=== PATIENT | male | born 1940 | race Caucasian/White ===

== ENCOUNTER 2017-05-29 13:00 | Inpatient (IN) ==
[2017-05-29 14:42] LABS: Basophils # (Auto) 0.1 K/mcL (0.0-0.3); Basophils % (Auto) 1.1 % (0.0-2.0); Eosinophils # (Auto) 0.5 K/mcL (0.0-0.7); Eosinophils % (Auto) 5.6 % (0.0-7.0); Granulocytes % (Auto) 54.4 % (38.0-78.0); Lymphocytes # (Auto) 2.7 K/mcL (1.5-4.8); Lymphocytes % (Auto) 28.1 % (15.5-49.0); Mean Cell Volume 107.4 fL (80.0-100.0); Mean Corpuscular HGB Conc 33.9 g/dL (31.0-36.0); Mean Corpuscular Hemoglobin 36.4 pg (26.0-34.0); Monocytes % (Auto) 10.8 % (1.0-12.0); Platelet Count 296 K/mcL (140-440); RBC 3.65 M/mcL (4.50-5.90); Red Cell Distribution Width 14.7 % (11.5-14.5)
[2017-05-29 14:45] LABS: Appearance,Urine HAZY; Bilirubin,Urine NEG (NEG); Color,Urine YELLOW; Glucose,Urine (UA) NEGATIVE (NEG); Leukocyte Esterase,Urine NEG /uL (NEG); Nitrate,Urine NEG (NEG); Protein,Urine NEG (NEG); Specific Gravity,Urine 1.013 (1.000-1.035); Urine Blood NEG mg/dL (<0.03); Urobilinogen,Urine NEG (NEG)
[2017-05-29 14:54] LABS: Blood Urea Nitrogen 19 mg/dl (8-23)
[2017-06-04] MEDS ORDERED: oxyCODONE 10 MG TAB.ER.12H PO SCH (06:00)
[2017-06-04] MEDS ORDERED: CELECOXIB 200 MG CAPSULE PO SCH (06:00)
[2017-06-04] MEDS ORDERED: VANCOMYCIN 1,500 MG in 0.9 % SODIUM CHLORIDE 500 ML IV SCH (06:00)
[2017-06-04] MEDS ORDERED: PREGABALIN 75 MG CAPSULE PO SCH (06:00)
[2017-06-04] MEDS ORDERED: KETOROLAC 30 MG, ROPIVACAINE HCL/PF 49.5 ML, EPINEPHrine 0.5 MG, 0.9 % SODIUM CHLORIDE ... IJ ONE (07:00)
[2017-06-04] MEDS ORDERED: BUPIVACAINE PF 0.5% 30 ML VIAL IJ ONE (12:25)
[2017-06-04] MEDS ORDERED: PHENYLEPHRINE 10 MG/ML VIAL IV ONE (12:25)
[2017-06-04] MEDS ORDERED: LIDOCAINE HCL/PF 100 MG/5 ML SYRINGE IV ONE (12:25)
[2017-06-04] MEDS ORDERED: DEXAMETHASONE 10 MG/ML VIAL IV ONE (12:25)
[2017-06-04] MEDS ORDERED: ePHEDrine 50 MG/ML AMPUL IV ONE (12:25)
[2017-06-04] MEDS ORDERED: PROPOFOL 200 MG/20 ML VIAL IV ONE (12:25)
[2017-06-04] MEDS ORDERED: ONDANSETRON 4 MG/2 ML VIAL IV ONE (12:25)
[2017-06-04] MEDS ORDERED: TRANEXAMIC ACID 1,000 MG/10 ML VIAL IV ONE ×2 (12:25→14:19)
[2017-06-04] MEDS ORDERED: MIDAZOLAM 2 MG/2 ML VIAL IV ONE (12:25)
[2017-06-04] MEDS ORDERED: MAGNESIUM HYDROXIDE 30 ML ORAL.SUSP PO PRN (14:19)
[2017-06-04] MEDS ORDERED: FLEETS ADULT ENEMA PR PRN (14:19)
[2017-06-04] MEDS ORDERED: BISACODYL 10 MG SUPP.RECT PR PRN (14:19)
[2017-06-04] MEDS ORDERED: POLYETHYLENE GLYCOL 3350 17 GM PACKET PO PRN (14:19)
[2017-06-04] MEDS ORDERED: ONDANSETRON 4 MG/2 ML VIAL IV PRN ×2 (14:19→14:23)
[2017-06-04] MEDS ORDERED: BENZOCAINE/MENTHOL 1 LOZENGE PO PRN ×2 (14:19→14:23)
--- NOTE | 2017-06-04 14:19 | Brief Operative Note ---
Date of procedure: 06/04/17 Pre-op diagnosis: Right knee severe DJD Post-op diagnosis: same Procedure: Right robotic assisted total knee arthroplasty Grafts/Implants: Yes ([place] [employer] CR 5, 6 tibia, 11 mm, 36 mm patella) Anesthesia: spinal, GLMA Findings: severe bone on bone arthritis Complications: none Surgeon: Jesse Horn Nursing Informatics Specialist: Meng Cook Estimated blood loss (cc): 30 Specimens Removed/Pathology: none sent Condition: stable Disposition: PACU
[2017-06-04] MEDS ORDERED: fentaNYL 100 MCG/2 ML VIAL IV PRN (14:23)
[2017-06-04] MEDS ORDERED: METOPROLOL TARTRATE 5 MG/5 ML VIAL IV PRN (14:23)
[2017-06-04] MEDS ORDERED: METHOCARBAMOL 1,000 MG/10 ML VIAL IV PRN (14:23)
[2017-06-04] MEDS ORDERED: MEPERIDINE 25 MG/ML SYRINGE IV PRN (14:23)
[2017-06-04] MEDS ORDERED: IPRATROPIUM/ALBUTEROL 3 ML AMPUL.NEB NEB PRN (14:23)
[2017-06-04] MEDS ORDERED: traMADol 50 MG TABLET PO PRN (14:24)
[2017-06-04] MEDS ORDERED: LACTATED RINGERS 1,000 ML IV SCH (14:30)
[2017-06-04] MEDS ORDERED: ceFAZolin 1 GM VIAL IV SCH (14:30)
--- NOTE | 2017-06-04 14:50 | Discharge Summary ---
Providers - Providers Patient information: Note initiated : 06/04/17 at 2:48 pm Service Date, if different from initiated Date: [] Patient: Jose A Zamudio 77 y/o M admitted on 06/04/17 for Arthroplasty, Knee, Total - Right Robotic. Chief Complaint: [] Discharge date: 06/05/17 Hospitalization Hospital course: Pt was admitted for a TKA and underwent the procedure on the day of admission. He was transferred to the floor for IV pain meds, IV abx, and PT. He spent one night on the floor prior to discharge. He was discharged with appropriate pain meds, and aspirin for DVT prophylaxis. he will f/u at [facility] in 10-14 days. Discharge diagnosis: R knee osteoarthrosis Exam - Exam Clean and dry: Yes Weight bearing status: as tolerated Ortho Discharge - TKA - Patient Instructions Diet: Regular Diet Activity: activity as tolerated Total Knee Protocol: For Total Knee: Start ROM ORQUIDEA with stationary bike or rocking chair. Work on gaining full extension of knee. Posterior dislocation precautions provided. Hip abductor strengthening and gait training instructions provided. Apply Cryocuff as instructed. Dressing Care: May shower in 2 days - Follow Up Plan Disposition: Home, Self-Care Prognosis: Good Rehab Potential: Good Overall status at discharge: patient is progressing back to baseline - Orders For Discharge Prescriptions: Aspirin [Ecotrin] 325 mg PO BID #30 tab.ec HYDROcodone/APAP 10/325MG [[place] 10/325Mg] 1 - 2 tab PO Q4HP PRN #100 tab PRN Reason: Pain Pending Studies Resuscitation Status Full Code Diet Regular Diet Start FriJun 04 Dinner Diet NPO Diet (NOW) Start FriJun 04 Breakfast Celecoxib (Celebrex) 200 mg PO PREOP ANDREW Stop: 06/04/17 17:00 Last Admin: 06/04/17 10:00 Dose: 200 mg Oxycodone HCl (Oxycontin) 10 mg PO PREOP ANDREW Stop: 06/04/17 17:00 Last Admin: 06/04/17 10:01 Dose: Pregabalin (Lyrica) 75 mg PO PREOP ANDREW Stop: 06/04/17 17:00 Last Admin: 06/04/17 10:00 Dose: 75 mg
[2017-06-04] MEDS: 0.9 % SODIUM CHLORIDE 1,000 ML IV SCH (15:07)
--- NOTE | 2017-06-04 15:30 | XRay Report ---
CLINICAL INFORMATION: Postop total knee prostheses COMPARISON: None. FINDINGS: Total knee prostheses is anatomically aligned. The small amount of periosteal bone along the lateral epiphysis and metaphysis of the proximal tibia. No other osseous abnormalities. Soft tissues swelling and gas seen as expected. IMPRESSION: Total knee prostheses is anatomically aligned. Periosteal new bone about the lateral cortex of the proximal tibial metaphysis and epiphysis. This is nonspecific and could indicate trauma or, less likely, inflammation Interpreted and Authenticated by: Zachary Izaguirre 06/04/17
[2017-06-04] MEDS: KETOROLAC 15 MG/ML VIAL IV SCH ×2 (17:48→23:38)
[2017-06-04] MEDS: HYDROcodone/APAP 10/325MG TABLET PO PRN ×2 (19:33→23:38)
[2017-06-04] MEDS: SENNOSIDES 1 TABLET PO SCH (19:34)
[2017-06-04] MEDS: DOCUSATE SODIUM 100 MG CAPSULE PO SCH (19:34)
[2017-06-04] MEDS: ASPIRIN 325 MG ENTERIC COATED TABLET PO SCH (19:34)
[2017-06-04] MEDS: 0.9 % SODIUM CHLORIDE 10 ML SYRINGE IV SCH (21:28)
[2017-06-04] MEDS: VANCOMYCIN 1,000 MG in 0.9 % SODIUM CHLORIDE 250 ML IV SCH (22:38)
[2017-06-05] MEDS: 0.9 % SODIUM CHLORIDE 1,000 ML IV SCH (01:29)
[2017-06-05] MEDS: HYDROcodone/APAP 10/325MG TABLET PO PRN ×5 (04:34→22:09)
[2017-06-05] MEDS: KETOROLAC 15 MG/ML VIAL IV SCH ×4 (05:45→23:30)
[2017-06-05] MEDS: 0.9 % SODIUM CHLORIDE 10 ML SYRINGE IV SCH ×3 (05:49→22:10)
--- NOTE | 2017-06-05 07:43 | Orthopedic Progress Note ---
Orthopedics - Auxillary Note - Subjective Patient Information: Note initiated : 06/05/17 at 7:41 am Service Date, if different from initiated Date: [] Patient: Jose A Zamudio 77 y/o M admitted on 06/04/17 for Arthroplasty, Knee, Total - Right Robotic. Chief Complaint: mild to moderate pain, mainly with activity. bandages c/d/i nvi-distal Laboratory Results - last 24 hr 06/05/17 05:57 Hgb 10.6 L Hct 30.9 L s/p R total knee arthroplasty-stable mobilize with PT tentative discharge 06/06/17 Vital Signs Temp Pulse Pulse Resp BP BP Pulse Ox 06/05/17 07:35 65 94 06/05/17 07:22 16 93 06/05/17 07:18 96.8 F L 61 16 111/67 93 06/05/17 04:00 97.5 F 57 L 16 124/70 94 06/05/17 00:00 97.7 F 66 16 125/67 91 06/04/17 20:00 97.9 F 68 18 138/72 93 06/04/17 17:28 178/77 99 06/04/17 17:15 151/78 97 06/04/17 16:15 149/77 98 06/04/17 16:00 154/75 98 06/04/17 15:45 18 145/71 98 06/04/17 15:30 96.4 F L 14 138/76 100 06/04/17 15:18 97.2 F 63 14 127/62 98 06/04/17 15:05 97.6 F 67 15 126/58 100 06/04/17 14:55 69 18 119/52 100 06/04/17 14:50 67 18 127/56 100 06/04/17 14:45 68 16 113/51 100 06/04/17 14:40 65 14 119/51 99 06/04/17 14:38 98.1 F 65 18 118/52 99 06/04/17 10:20 97.2 F 18 181/76 91 Intake and Output 06/04/17 06/05/17 06/05/17 21:59 05:59 13:59 Intake Total 2039 1450 / 1450 Output Total 85 / 85 625 / 625 200 / 200 Balance 1954 / 1955 825 / 825 -200 / -200 Intake: IV 1800 / 1800 Oral 240 / 240 1450 / 1450 Output: Void Amount 625 / 625 200 / 200 Estimated Blood Loss 85 / 85 Other: Meal Dinner Percent of Meal Consumed 100% Feeding Ability Independent Weight 212 lb
[2017-06-05] MEDS: ATENOLOL 50 MG TABLET PO SCH (08:20)
[2017-06-05] MEDS: ASPIRIN 325 MG ENTERIC COATED TABLET PO SCH ×2 (08:20→20:34)
[2017-06-05] MEDS: MULTIVIT,THER IRON,CA,FA & MIN 1 TABLET PO SCH (08:20)
[2017-06-05] MEDS: DOCUSATE SODIUM 100 MG CAPSULE PO SCH ×2 (08:20→20:34)
[2017-06-05] MEDS: [UNRECOGNIZED DRUG - OTHER] PO SCH (08:24)
[2017-06-05] MEDS ORDERED: VANCOMYCIN 1,500 MG in 0.9 % SODIUM CHLORIDE 500 ML IV ONE (11:00)
[2017-06-05] MEDS: VANCOMYCIN 1,000 MG in 0.9 % SODIUM CHLORIDE 250 ML IV SCH (11:35)
--- NOTE | 2017-06-05 13:36 | Operative Note ---
DATE OF OPERATION: 06/04/2017 PREOPERATIVE DIAGNOSIS: Right knee severe osteoarthritis. POSTOPERATIVE DIAGNOSIS: Right knee severe osteoarthritis. PROCEDURE PERFORMED: Right robotic-assisted total knee arthroplasty using a size 5 cruciate retaining femoral component, size 6 tibial baseplate, 11 mm X3 tibial insert with a 36 mm patellar button. SURGEON: Jesse Horn MD. NURSING EDUCATION CONSULTANT: Joel Cook PA-C. ANESTHESIA: Spinal plus general. DRAINS: None. SPECIMENS: Bone cuts, which were discarded. BLOOD LOSS: 30 mL COMPLICATIONS: None. POSTOPERATIVE CONDITION: Stable. INDICATIONS FOR SURGERY: This is a 77-year-old male who has had progressive worsening right knee pain. Radiographs showed advanced arthrosis. FINDINGS AT SURGERY: There is advanced tricompartmental osteoarthritis. Post implantation showed good alignment, stability, and patellar tracking. PROCEDURE IN DETAIL: The patient had been seen in preoperative holding. Informed consent had been obtained after discussion of risks and benefits of surgery. Risks including, but not limited to, bleeding, possibly requiring transfusion; infection, possibly requiring implant removal and prolonged IV antibiotics; injury to nerves, blood vessels, and other surrounding structures; anesthetic risks, incomplete or no resolution of symptoms; stiffness; swelling; pain; clunking; DVT and pulmonary embolus risks; and the possibility of needing further surgery. He understood these risks and wished to proceed. Correct operative site was marked and the patient received spinal anesthesia. He was then taken to the operating room and LMA general given. Right lower extremity was carefully prepped and draped in normal sterile fashion and a time-out was performed verifying patient name, operative site, and plan. Esmarch was used to exsanguinate the extremity and tourniquet was inflated. IrriSept was irrigated. A medial parapatellar arthrotomy was made and subperiosteal exposure done of the anterior medial tibia. This was completed with release of the deep fibers of the MCL and taken around the corner of the proximal tibia. We then resected retropatellar fat pad and did a subperiosteal exposure of the anterior distal cortex of the femur. We then made two stab incisions over the tibia and two over the femur and placed two bicortical pins into each. We then attached the arrays. We also placed the femoral and tibial check points. Hip center of rotation was then checked and then the medial and lateral malleoli were checked with the green probe. We did our double checks of the femoral and tibial checkpoints. The blue probe was then used to do our mapping. Once this was completed, we then removed osteophytes with a rongeur. We then checked our flexion and extension gaps. We were tight medial and looser lateral, so we placed our tibia in 2 degrees of varus. Her femur was placed in 1 degree of varus. We did get 17 on our medial flexion and extension gaps as well as 17 our lateral flexion gap. Once we liked our component position, this was locked into the computer and after doing our double checks using the robotic arm assistance we made our saw cuts on the femur followed by the tibia. We then used the green probe to identify our tibial component rotation and marked that with Bovie. We then prepared the tibia with the boss reamer and keel punch and then a keeled tibial trial was placed. The femur was elevated and posterior osteophytes removed with a curved osteotome and curet. We placed the femoral trial and drilled our peg holes. A 9 insert trial was placed. The knee was taken into extension. The patella was measured and then freehand resected removing 10 mm of bone. We medialized this and sized to a 36. Holes were drilled and the patellar trial was placed. A lateral facetectomy was performed with a saw blade. We liked our patellar tracking, so we went ahead and opened implants except for the tibial insert. The trial implants were removed. Antibiotic cement was mixed while we irrigated the joint with IrriSept. After a minute we pulse lavaged with saline and then CO2 gun was used to clear the cancellous bone surfaces. We cemented the tibia followed by the femur. Excess cement had been removed and then a 9 insert trial was placed and the knee was taken into extension. The patella was cemented. We then injected our pain cocktail into the pericapsular and subcutaneous tissues. The joint was filled with IrriSept. After waiting several minutes we then pulse lavaged copiously with saline. Once cement had fully hardened, we flexed the knee up and did a final inspection and removal of any excess cement. We removed the 9 trial. This reduced pretty easily and we checked our extension and there were a few degrees of hyperextension, so we went up to a size 11 trial. This had about 3 degrees short of full extension, so we went ahead and removed the 11 and opened an 11 insert. We injected the remainder of pain cocktail into the posterior capsule and then irrigated with IrriSept and then impacted the insert. After a minute we pulse lavaged with saline. Then #2 FiberWire [id number] interrupted were used around the superior quadrant of the patella, #1 Vicryl [id number] were used around the inferior quadrant of the patella and running #1 Vicryl was used for patellar tendon and quad tendon. Prior to this closure we did remove both femoral and tibial check points. Final IrriSept irrigation was done, after a minute we pulse lavaged and then 2-0 Monocryl was used for subcutaneous and jeffrey for skin. Our pins had been removed and we used jeffrey for the stab incisions. Xeroform and sterile dressing were applied. Tourniquet was released. The patient was awakened, extubated, and transferred to recovery in stable condition. BJB:natividad Job ID: [id number] Doc ID: [id number] Jesse Horn MD
[2017-06-05] MEDS: SENNOSIDES 1 TABLET PO SCH (20:34)
[2017-06-06] MEDS: HYDROcodone/APAP 10/325MG TABLET PO PRN ×2 (02:02→05:52)
[2017-06-06] MEDS: KETOROLAC 15 MG/ML VIAL IV SCH (05:53)
[2017-06-06] MEDS: 0.9 % SODIUM CHLORIDE 10 ML SYRINGE IV SCH (05:56)
--- NOTE | 2017-06-06 07:37 | Orthopedic Progress Note ---
Orthopedics - Auxillary Note - Subjective Patient Information: Note initiated : 06/06/17 at 7:36 am Service Date, if different from initiated Date: [] Patient: Jose A Zamudio 77 y/o M admitted on 06/04/17 for Arthroplasty, Knee, Total - Right Robotic. Chief Complaint: no c/o. ready for discharge. bandages mild dry bloody drainage. nvi-distal Vital Signs Temp Pulse Resp BP Pulse Ox 06/06/17 04:00 97.8 F 58 L 16 156/74 92 06/05/17 23:43 97.8 F 64 16 143/71 92 06/05/17 20:00 98.1 F 64 16 138/73 93 06/05/17 16:30 97.9 F 64 16 118/65 94 06/05/17 11:50 96.8 F L 61 16 111/63 94 Intake and Output 06/05/17 06/06/17 06/06/17 21:59 05:59 13:59 Intake Total 400 / 400 300 / 300 Output Total 600 / 600 700 / 700 Balance -200 / -200 -400 / -400 Intake: Oral 400 / 400 300 / 300 Output: Void Amount 600 / 600 700 / 700 Other: Meal Dinner Percent of Meal Consumed 100% Feeding Ability Independent # Voids 2 Weight 214 lb Laboratory Results - last 24 hr 06/06/17 05:37 Hgb 10.6 L Hct 31.0 L s/p R TKA-stable mobilize with PT discharge home today
[2017-06-06] MEDS: ATENOLOL 50 MG TABLET PO SCH (08:34)
[2017-06-06] MEDS: ASPIRIN 325 MG ENTERIC COATED TABLET PO SCH (08:34)
[2017-06-06] MEDS: MULTIVIT,THER IRON,CA,FA & MIN 1 TABLET PO SCH (08:34)
[2017-06-06] MEDS: DOCUSATE SODIUM 100 MG CAPSULE PO SCH (08:34)
[2017-06-06] MEDS: [UNRECOGNIZED DRUG - OTHER] PO SCH (09:05)
== END 2017-06-06 09:30 | disposition home or self-care (01) | DRG 470 ==
LOC: MEDSUR 06-04 08:42
PROVIDERS: ADMIT Orthopaedic Surgery; ATTEND Orthopaedic Surgery

== ENCOUNTER 2017-06-08 09:58 | Inpatient (IN) ==
[2017-06-08] MEDS ORDERED: PANTOPRAZOLE 40 MG VIAL IV ONE (10:13)
[2017-06-08] MEDS ORDERED: 0.9 % SODIUM CHLORIDE 2,000 ML IV ONE (10:13)
[2017-06-08] MEDS ORDERED: PANTOPRAZOLE 80 MG in 0.9 % SODIUM CHLORIDE 100 ML IV SCH (10:15)
[2017-06-08] MEDS ORDERED: 0.9 % SODIUM CHLORIDE 1,000 ML IV ONE ×2 (10:32)
[2017-06-08] MEDS ORDERED: ONDANSETRON 4 MG/2 ML VIAL IV ONE (10:40)
[2017-06-08 10:55] LABS: Basophils # (Auto) 0 K/mcL (0.0-0.3); Basophils % (Auto) 0.1 % (0.0-2.0); Eosinophils # (Auto) 0 K/mcL (0.0-0.7); Eosinophils % (Auto) 0 % (0.0-7.0); Granulocytes % (Auto) 87.2 % (38.0-78.0); Lymphocytes # (Auto) 1.1 K/mcL (1.5-4.8); Mean Cell Volume 107.2 fL (80.0-100.0); Mean Corpuscular HGB Conc 34.1 g/dL (31.0-36.0); Mean Corpuscular Hemoglobin 36.5 pg (26.0-34.0); Monocytes # (Auto) 0.6 K/mcL (0.1-0.9); Monocytes % (Auto) 4.7 % (1.0-12.0); Platelet Count 304 K/mcL (140-440); Red Cell Distribution Width 14.8 % (11.5-14.5)
[2017-06-08] MEDS ORDERED: PROMETHAZINE 50 MG/ML AMPUL IM ONE ×2 (11:11→12:33)
[2017-06-08 11:18] LABS: ALT/SGPT 60 U/l (0-40); Albumin 3.6 gm/dL (3.2-5.2); Alkaline Phosphatase 55 U/L (39-117); Blood Urea Nitrogen 37 mg/dl (8-23); Lipase 23 U/L (7-60); Magnesium 1.9 mg/dL (1.6-2.5)
--- NOTE | 2017-06-08 11:54 | Emergency Department Note ---
General Adult HPI - General Chief complaint: Nausea/Vomiting/Diarrhea Stated complaint: Vomiting Time Seen by Provider: 06/08/17 10:09 Source: patient Mode of arrival: wheelchair Limitations: no limitations - History of Present Illness HPI Narrative: 77-year-old male who had a total knee replacement 4 days ago was sent home 2 days ago on aspirin to prevent thrombosis. He was not previously on aspirin. Since he has got home he really has not ate secondary to nausea and vomiting. His vomitus is turned to black from dark red. He does not know if he has had a fever. He endorses significant weakness but no shortness of breath or diarrhea. He switched from hydrocodone to tramadol but these medicines have made him nauseous - Related Data Home Medications Medication Instructions Recorded Confirmed Atenolol [Tenormin] 25 mg PO DAILY 05/29/17 06/08/17 Better Bladder Ultra Blend Bladder 2 cap PO DAILY 05/29/17 06/08/17 Support Formula Multivitamin with Iron 1 tab PO DAILY 05/29/17 06/08/17 [Multivitamins with Iron] traMADol [Ultram] 100 mg PO Q8HP PRN 05/29/17 06/08/17 Previous Rx's Medication Instructions Recorded Aspirin [Ecotrin] 325 mg PO BID #30 tab.ec 06/04/17 HYDROcodone/APAP 10/325MG [[place] 1 - 2 tab PO Q4HP PRN #100 tab 06/04/17 10/325Mg] Allergies Allergy/AdvReac Type Severity Reaction Status Date / Time Penicillins Allergy Mild Swelling Verified 06/08/17 09:59 Oxycodone AdvReac Intermediate Agitated Verified 06/08/17 09:59 Review of Systems All systems ED: reviewed and negative except as stated. Past Medical History - Past Medical History Attestation: Yes: The following information was validated with the patient. Medical history: Reports: arthritis, hypertension Surgical history ED: Reports: knee replacement - Social History smoking status: Former smoker Alcohol use: Reports: Occasionally Physical Exam Pale elderly male with some distress secondary to nausea and vomiting. Vomitus is liquid black to dark red consistent with upper GI hemorrhage. I do see some coffee-ground type residue around his mouth on his tongue and in the bottle. Normocephalic atraumatic. Conjunctive are clear sclerae white and nonicteric. Neck is supple without lymphadenopathy thyromegaly or carotid bruit. Heart is regular rate and rhythm. Lungs are clear to auscultation bilaterally without wheezes rales rhonchi or respiratory distress. Abdomen is soft and very tender in the epigastrium. Nondistended. No guarding or rigidity. +2 radial pulse. His right leg shows bandage from knee surgery it is mildly edematous compared to the left. He still has some of the blue antiseptic on his leg. He is alert oriented able answer questions appropriately. No dysarthria or ataxia. Exam also shows some purpura bilateral arm from IV sticks etc. - General Limitations: no limitations Course Vital Signs Temperature 97.8 F 06/08/17 10:00 Pulse Rate 76 06/08/17 10:00 Respiratory Rate 16 06/08/17 10:00 Blood Pressure 187/83 06/08/17 10:00 Pulse Oximetry (%) 97 06/08/17 10:00 Temperature 97.8 F 06/08/17 10:00 Pulse Rate 71 06/08/17 12:57 Respiratory Rate 17 06/08/17 12:57 Blood Pressure 147/73 06/08/17 12:31 Pulse Oximetry (%) 94 06/08/17 12:57 Medical Decision Making - Lab Data Lab results reviewed: Yes I reviewed the patient's lab results. Result diagrams: 06/08/17 10:20 06/08/17 10:20 Lab Results 06/08/17 06/08/17 06/08/17 Range/Units 10:20 10:20 10:20 WBC 13.7 H (4.5-11.0) K/mcL RBC 2.80 L (4.50-5.90) M/mcL Hgb 10.2 L (13.5-16.5) g/dL Hct 30.0 L (41.0-55.0) % POC Hct 28.0 L (41.0-55.0) % MCV 107.2 H (80.0-100.0) fL MCH 36.5 H (26.0-34.0) pg MCHC 34.1 (31.0-36.0) g/dL RDW 14.8 H (11.5-14.5) % Plt Count 304 (140-440) K/mcL MPV 9.6 (7.4-10.4) fL Gran % 87.2 H (38.0-78.0) % Lymph % (Auto) 8.0 L (15.5-49.0) % Kidder % (Auto) 4.7 (1.0-12.0) % Eos % (Auto) 0 (0.0-7.0) % Baso % (Auto) 0.1 (0.0-2.0) % Gran # 12.0 H (1.8-8.0) K/mcL Lymph # (Auto) 1.1 L (1.5-4.8) K/mcL [place] # (Auto) 0.6 (0.1-0.9) K/mcL Eos # (Auto) 0 (0.0-0.7) K/mcL Baso # (Auto) 0 (0.0-0.3) K/mcL POC PT 13.7 (11.9-14.5) sec POC INR 1.2 (0.9-1.2) VBG Lactic Acid (0.5-2.2) mmol/L POC Sodium 141 (133-145) mmol/L Sodium 143 (133-145) mmol/L POC Potassium 3.9 (3.3-5.1) mmol/L Potassium 3.7 (3.3-5.1) mmol/L POC Chloride 99 (96-108) mmol/L Chloride 95 L (96-108) mmol/L Carbon Dioxide 28 (22-30) mmol/L POC Total CO2 34 H (22-30) mmol/L Anion Gap 20.0 H (8-16) POC BUN 44 H (8-23) mg/dl BUN 37 H (8-23) mg/dl Creatinine 1.4 H (0.7-1.2) mg/dl POC Creatinine 1.4 H (0.7-1.2) mg/dl GFR Calculation 49 Glucose 171 H (70-105) mg/dL POC Glucose 169 H (70-105) mg/dL Calcium 9.9 (8.6-10.4) mg/dl POC WB Ioniz Calcium 1.10 L (1.16-1.32) mmol/L Magnesium 1.9 (1.6-2.5) mg/dL Total Bilirubin 0.7 (0.0-1.0) mg/dL AST 98 H (0-37) U/l ALT 60 H (0-40) U/l Alkaline Phosphatase 55 (39-117) U/L Total Protein 7.3 (5.9-8.4) gm/dL Albumin 3.6 (3.2-5.2) gm/dL Globulin 3.7 (2.2-3.7) gm/dL Albumin/Globulin Ratio 1.0 (1.0-2.3) Lipase 23 (7-60) U/L 06/08/ Range/Units 10:27 WBC (4.5-11.0) K/mcL RBC (4.50-5.90) M/mcL Hgb (13.5-16.5) g/dL Hct (41.0-55.0) % POC Hct (41.0-55.0) % MCV (80.0-100.0) fL MCH (26.0-34.0) pg MCHC (31.0-36.0) g/dL RDW (11.5-14.5) % Plt Count (140-440) K/mcL MPV (7.4-10.4) fL Gran % (38.0-78.0) % Lymph % (Auto) (15.5-49.0) % Kidder % (Auto) (1.0-12.0) % Eos % (Auto) (0.0-7.0) % Baso % (Auto) (0.0-2.0) % Gran # (1.8-8.0) K/mcL Lymph # (Auto) (1.5-4.8) K/mcL [place] # (Auto) (0.1-0.9) K/mcL Eos # (Auto) (0.0-0.7) K/mcL Baso # (Auto) (0.0-0.3) K/mcL POC PT (11.9-14.5) sec POC INR (0.9-1.2) VBG Lactic Acid 2.3 H (0.5-2.2) mmol/L POC Sodium (133-145) mmol/L Sodium (133-145) mmol/L POC Potassium (3.3-5.1) mmol/L Potassium (3.3-5.1) mmol/L POC Chloride (96-108) mmol/L Chloride (96-108) mmol/L Carbon Dioxide (22-30) mmol/L POC Total CO2 (22-30) mmol/L Anion Gap (8-16) POC BUN (8-23) mg/dl BUN (8-23) mg/dl Creatinine (0.7-1.2) mg/dl POC Creatinine (0.7-1.2) mg/dl GFR Calculation Glucose (70-105) mg/dL POC Glucose (70-105) mg/dL Calcium (8.6-10.4) mg/dl POC WB Ioniz Calcium (1.16-1.32) mmol/L Magnesium (1.6-2.5) mg/dL Total Bilirubin (0.0-1.0) mg/dL AST (0-37) U/l ALT (0-40) U/l Alkaline Phosphatase (39-117) U/L Total Protein (5.9-8.4) gm/dL Albumin (3.2-5.2) gm/dL Globulin (2.2-3.7) gm/dL Albumin/Globulin Ratio (1.0-2.3) Lipase (7-60) U/L - EKG Data EKG #1 EKG attestation: Yes I reviewed and interpreted this EKG. EKG results narrative: Preoperative EKG shows some flattening of the T waves in the inferior leads but otherwise normal sinus rhythm Disposition Pt seen by CARE ASSOCIATE/PA only: No Clinical Impression: Upper GI hemorrhage Summary: Obvious upper GI hemorrhage with coffee-ground emesis but stable vitals. During workup we started IV fluids and gave him 8 mg of Zofran and started Protonix drip after 80 mg Protonix initial dose. Zofran did not completely control his nausea and so we also ended up giving him 25 mg of Phenergan Laboratory endorses significant GI bleed requiring endoscopy. I discussed the situation with Dr. Veloz who agreed to come see the patient and do emergency endoscopy. Nursing staff was alerted. Also discussed case with Dr. Leon the hospitalist who agreed to admit the patient and consult Dr. Veloz. He went to the operating room from our ER Disposition: Xfer As Inpt ([facility]) Condition: Serious Referrals: Sneha Bhandari, JI[facility] [Primary Care Provider] -
[2017-06-08] MEDS ORDERED: PROPOFOL 200 MG/20 ML VIAL IV ONE (13:15)
[2017-06-08] MEDS ORDERED: MIDAZOLAM 2 MG/2 ML VIAL IV ONE (13:15)
[2017-06-08] MEDS ORDERED: MIDAZOLAM 2 MG/2 ML VIAL ONE (13:34)
[2017-06-08] MEDS ORDERED: PROPOFOL 20 ML IV ONE (13:34)
[2017-06-08 13:43] LABS: Appearance,Urine CLEAR; Bacteria,Urine 0 /hpf (0); Bilirubin,Urine NEG (NEG); Color,Urine YELLOW; Glucose,Urine (UA) NEGATIVE (NEG); Leukocyte Esterase,Urine NEG /uL (NEG); Mucus,Urine FEW /hpf (0); Nitrate,Urine NEG (NEG); Protein,Urine NEG (NEG); Urine Blood NEG mg/dL (<0.03); Urine RBC 1 /hpf (0-1); Urine Squamous Epithelial Cell < 1 /hpf (0-4); Urine Transitional Epi Cells < 1 /hpf (0-2); Urine WBC 1 /hpf (0-4)
[2017-06-08] MEDS ORDERED: GLUCAGON,HUMAN RECOMBINANT 1 MG VIAL IM ONE (14:23)
[2017-06-08] MEDS ORDERED: GLUCAGON,HUMAN RECOMBINANT 1 MG VIAL IV ONE (14:27)
--- NOTE | 2017-06-08 15:00 | Internal Med History&Physical ---
Medical - H&P: [facility] Patient information: Note initiated : 06/08/17 at 2:56 pm Service Date, if different from initiated Date: [] Patient: Jose A Zamudio a 77 y/o M admitted on for Vomiting. Chief Complaint: Nausea, bloody/dark emesis History of present illness: Mr. Zamudio is a 77 year old M with a history of controlled hypertension, remote history of upper gastrointestinal hemorrhage as well as osteoarthritis, now status post right total knee replacement on this past Friday who presents to the ED with dark emesis. History is obtained in speaking with the patient, as well as reviewing old records. Patient was discharged Friday, states that he felt great when he went home. The hospital he started to get tired after that stopped to get prescriptions filled he developed nausea over the evening on Friday, was nauseated on Friday. Friday evening developed emesis. It was with some blood, then became dark. He was having normal bowel movements, no diarrhea, no hematochezia , no maroon or melenic stools. Patient has a history of upper GI bleed in the past, he was unable to fully describe the situation, but underwent EGD. He estimates that was at least 15 years ago. He does not recall using nonsteroidals at that time. Patient generally doesn't use nonsteroidals, was discharged on 325 mg of aspirin BID for DVT prophylaxis after his total knee replacement. He does not use a proton pump inhibitor. He does use Tums for indigestion one or 2 times a month. He presents to the emergency department, where he had repeated episodes of dark liquidy to burgundy emesis. Hemoglobin and presentation was 10.2. He received fluids, proton pump inhibitor and GI consult. He is now status post EGD by Dr. Matson, is being admitted to the intensive care unit. Endoscopy found duodenal ulcer x 2, clips were placed x 2. Other than the nausea and vomiting patient denies fevers, chills, headache, vision changes, chest pain, dyspnea, focal neurologic symptoms. Denies any history of coronary disease, stroke, lung disease, kidney disease, diabetes. Review of systems: Except as noted in history of present illness, the remainder of a 10 point review of systems is notable for postoperative pain in the right knee. Otherwise negative. Medical - H&P: PMH Medical history: Hypertension Osteoarthritis History of GI bleed Surgical history: Right total knee arthroplasty on June 04, 2017 Medical - H&P: Meds Home Medications Medication Instructions Recorded Confirmed Type Atenolol [Tenormin] 25 mg PO DAILY 05/29/17 06/08/17 History Better Bladder Ultra Blend Bladder 2 cap PO DAILY 05/29/17 06/08/17 History Support Formula Multivitamin with Iron 1 tab PO DAILY 05/29/17 06/08/17 History [Multivitamins with Iron] traMADol [Ultram] 100 mg PO Q8HP PRN 05/29/17 06/08/17 History Aspirin [Ecotrin] 325 mg PO BID #30 tab.ec 06/04/17 06/08/17 Rx HYDROcodone/APAP 10/325MG [[place] 1 - 2 tab PO Q4HP PRN #100 tab 06/04/17 Rx 10/325Mg] Allergies Allergy/AdvReac Type Severity Reaction Status Date / Time Penicillins Allergy Mild Swelling Verified 06/08/17 09:59 Oxycodone AdvReac Intermediate Agitated Verified 06/08/17 09:59 Medical - H&P: Exam - Constitutional Vitals: Temp Pulse Resp BP Pulse Ox 97.8 F 87 16 102/69 92 06/08/17 10:00 06/08/17 14:37 06/08/17 14:37 06/08/17 14:37 06/08/17 14:37 General appearance: mild distress - Head Head exam: Present: atraumatic, normal inspection - Eye Eye exam: Present: PERRL. Absent: conjunctival injection, scleral icterus - ENT Additional comments: Oropharynx discolored with dark emesis residual - Neck Neck exam: Present: full ROM. Absent: meningismus, thyromegaly - Respiratory Respiratory exam: Present: CTAB. Absent: respiratory distress - Cardiovascular Cardiovascular exam: Present: normal rate and rhythm. Absent: diastolic murmur , gallop, systolic murmur - GI/Abdominal GI/Abdominal exam: Present: soft, hyperactive bowel sounds, tenderness ( Epigastric, mild tenerness). Absent: distended - Extremities Exam Extremities exam: Present: Foot pink and warm, neurovascular intact Additional comments: Right knee with postoperative dressing in place. Trace right lower extremity edema - Neurological Exam Neurological exam: Present: alert, CN II-XII intact, oriented X3. Absent: motor sensory deficit - Psychiatric Psychiatric exam: Present: normal affect, normal mood - Skin Skin exam: Present: dry, warm Additional comments: Right knee wound with dressing in place Medical - H&P: Reslt - Labs CBC & Chem 7: 06/08/17 10:20 06/08/17 10:20 Labs: Short CBC 06/08/17 Range/Units 10:20 WBC 13.7 H (4.5-11.0) K/mcL Hgb 10.2 L (13.5-16.5) g/dL Hct 30.0 L (41.0-55.0) % Plt Count 304 (140-440) K/mcL BMP 06/08/17 10:20 Sodium 143 Potassium 3.7 Chloride 95 L Carbon Dioxide 28 BUN 37 H Creatinine 1.4 H Glucose 171 H Calcium 9.9 Liver Function 06/08/17 Range/Units 10:20 Total Bilirubin 0.7 (0.0-1.0) mg/dL AST 98 H (0-37) U/l ALT 60 H (0-40) U/l Alkaline Phosphatase 55 (39-117) U/L Albumin 3.6 (3.2-5.2) gm/dL Urine 06/08/17 Range/Units 13:00 Urine Color Yellow Urine Appearance Clear Urine pH 7.0 (5.0-9.0) Ur Specific [place] 1.020 (1.000-1.035) Urine Protein Neg (NEG) mg/dL Urine Glucose (UA) Negative (NEG) mg/dL - EKG Data Prior EKG available for review: yes EKG comments: 06/08/17 15:09 sinus rhythm at rate of 75 with lateral T-wave flattening Medical - H&P: A/P (1) Elevated serum creatinine Problem details: Cr 1.3 pre-op before knee surgery; no mention of CKD in records Current visit: Yes Status: Chronic (2) Hyperglycemia Problem details: No mention of DM, glucose 171 on metabolic panel Current visit: Yes Status: Acute (3) Anemia Current visit: Yes Status: Acute (4) Upper GI hemorrhage Current visit: Yes Status: Acute (5) Duodenal ulcer with hemorrhage Problem details: Source of upper GI bleed Current visit: Yes Status: Acute - Narrative A/P Narrative: 77-year-old gentleman who is postop day #4 after right total knee replacement, on 325 mg of aspirin twice a day for DVT prophylaxis, presents with nausea and emesis of bloody/dark material consistent with GI bleed. Upper GI hemorrhage secondary to duodenal ulcer. Ulcer 2 discovered on EGD, clips were placed. At risk for rebleed in the next 24-48 hours. Initial hemoglobin 10.2, follow-up hemoglobin after fluids and ongoing emesis of bloody material is currently pending. Hemodynamically remains stable. Plan: -Admission to ICU -PPI infusion -Serial hemoglobin and hematocrit, transfuse to keep above 7 -Stop aspirin and NSAIDs Osteoarthritis, status post right total knee arthroplasty on June 04. Plan: Pain control, stop aspirin, SCDs for DVT prophylaxis. We'll need to discuss with orthopedics a more long-term solution. Hypertension, on atenolol at home. Currently hemodynamically stable. Plan: Atenolol ordered, hold if hemodynamics become unstable. Elevated serum creatinine, 1.3 and preoperative labs prior to knee operation, 1.4 today. No history of chronic kidney disease noted in records, (though brief records), the patient denies a history of renal disease. Suspect he may have CKD, stage III. Plan: Monitor creatinine. Hyperglycemia on admission metabolic panel. No history of diabetes noted. Plan: Monitor, if remains elevated, we'll evaluate with hemoglobin A1c and need to start insulin therapy to control glucoses acutely. CODE STATUS full code, though the patient would not want prolonged life support
[2017-06-08] MEDS ORDERED: ACETAMINOPHEN 325 MG TABLET PO PRN (15:02)
[2017-06-08] MEDS ORDERED: traMADol 50 MG TABLET PO PRN (15:02)
[2017-06-08] MEDS ORDERED: ONDANSETRON 4 MG/2 ML VIAL IV PRN (15:02)
[2017-06-08] MEDS: 0.9 % SODIUM CHLORIDE 1,000 ML IV SCH (15:20)
[2017-06-08] MEDS ORDERED: 0.9 % SODIUM CHLORIDE 250 ML IV SCH (18:30)
[2017-06-08] MEDS: PANTOPRAZOLE 80 MG in 0.9 % SODIUM CHLORIDE 100 ML IV SCH (19:49)
[2017-06-08] MEDS: 0.9 % SODIUM CHLORIDE 10 ML SYRINGE IV SCH (21:37)
[2017-06-09] MEDS: HYDROcodone/APAP 10/325MG TABLET PO PRN ×2 (00:26→08:02)
[2017-06-09] MEDS: 0.9 % SODIUM CHLORIDE 1,000 ML IV SCH (01:44)
[2017-06-09 04:10] LABS: Blood Urea Nitrogen 37 mg/dl (8-23)
[2017-06-09 04:15] LABS: Mean Cell Volume 106.6 fL (80.0-100.0); Mean Corpuscular HGB Conc 33.8 g/dL (31.0-36.0); Platelet Count 213 K/mcL (140-440); RBC 2.09 M/mcL (4.50-5.90); Red Cell Distribution Width 14.9 % (11.5-14.5)
[2017-06-09 05:05] LABS: Band Neutrophils % 13 % (0-10); Lymphocytes % 16 % (15-49); Macrocytosis 2+ (NONE SEEN); Monocytes % (Manual) 9 % (1-12); Platelet Estimate NORMAL (NORMAL); RBC Morphology ABNORM (NORMAL); Segmented Neutrophils % 61 % (38-78)
[2017-06-09] MEDS: PANTOPRAZOLE 80 MG in 0.9 % SODIUM CHLORIDE 100 ML IV SCH ×2 (05:40→15:29)
[2017-06-09] MEDS: 0.9 % SODIUM CHLORIDE 10 ML SYRINGE IV SCH ×3 (05:41→21:50)
[2017-06-09] MEDS ORDERED: MULTIVIT,THER IRON,CA,FA & MIN 1 TABLET PO SCH (09:00)
[2017-06-09] MEDS ORDERED: ATENOLOL 50 MG TABLET PO SCH (09:00)
--- NOTE | 2017-06-09 09:04 | Operative Note ---
DATE OF OPERATION: 06/08/2017 PROCEDURE: Esophagogastroduodenoscopy with biopsies, heater probe cauterization for hemostasis and hemostatic clip placements. MD PHYSICIAN DERMATOLOGIST AND APPAREL DESIGNER: Zachary Matson M.D. ANESTHETIC USED: Propofol 400 mg IV and Versed 2 mg IV, glucagon 0.5 mg IV. INDICATION: This 77-year-old white male gives a history of a bleeding duodenal ulcer 15 or 20 years ago requiring intervention by endoscopy for control of bleeding. He apparently has had no further bleeding since then, but 4 days ago on 06/04/2017 he underwent right total knee replacement and was started on aspirin at that time. I believe that is for DVT prophylaxis. The patient was released two days later on 06/06/2017, but since he has been home he has been taking one or two or perhaps even three aspirin per day, hoping to prevent blood clots. He has been feeling very poorly since the day he was discharged home and actually has not eaten since 06/06/2017 because of significant nausea. He also has developed some epigastric pain, although it is not extreme. Today, he started vomiting dark-red bloody material at home and presented to the emergency room. He has not been reporting any melena, at least thus far. His social history includes drinking two shots of liquor three to four times per week with his last alcohol drink the day before his surgery which would make it about 06/03/2017. PREOPERATIVE DIAGNOSIS: Hematemesis with epigastric pain 4 days after knee replacement and with history of duodenal ulcer. POSTOPERATIVE DIAGNOSIS: Large clot overlying duodenal ulcer and endoscopic intervention performed at the ulcer bleeding site as described below. CONSENT: Prior to the procedure, the patient provided his own informed consent. The patient was evaluated and considered medically fit for endoscopy. DESCRIPTION OF PROCEDURE: With the patient in the left lateral decubitus position, a gastroscope was advanced via the mouth to the esophagus under direct vision. The esophagus appears unremarkable. No varices. I should say that distally at the GE junction, there is a friable area. I did not see a definite Ana-Claudio tear, and I did not see any active significant bleeding from this area. The stomach was notable for a large quantity of coffee ground-colored fluid. I aspirated this through the scope to the greatest extent possible and removed about 800 mL quickly. The bloody fluid still remaining in the stomach after this appears as coffee ground material, but the great majority was aspirated through the scope. Retroflex view at the stomach does not reveal a bleeding source. No gastric varices. No ulcer. No [place] vessel seen. The scope was advanced to the antrum which appears normal, but there is some altered blood coming through the pylorus into the antrum. Scope was advanced into the duodenal bulb which the distal portion of the bulb is almost completely occluded by a large clot. I was able to advance the scope around the clot to the second portion of the duodenum. There is some recent blood and altered blood in the second part of the duodenum. I returned the scope to the duodenal bulb. The proximal part of the duodenal bulb does not appear to be actively or having recently bled. There is, however, an anterior bulb ulcer anteriorly which has a small vessel in it but does not appear to have recently bled. Attention was then placed to the very large clot at the distal bulb that occluded the lumen. I used a number of devices to try to clear the clot away, so that I could see the base of the clot and determine need for intervention. I tried to use a cold snare, but this was not sufficient to get the clot removed. I tried a 3-pronged grasper, but this also failed to remove the clot adequately. I used a stiff braided snare and was able to pull off pieces of the clot. Eventually I was able to completely remove the clot, and this revealed a large, broad, but actually quite superficial ulcer. The ulcer was irregularly shaped in its border, perhaps being up to 2 or 2.5 cm in greatest diameter but only shallow depth. At the mid portion of this fairly flat ulcer was a purple site of probable submucosal hemorrhage. I could not see a definite vessel there but that seems to be the likely area where the clot had been tethered. I next tried to place clips on the probable bleeding site. Since the ulcer base was so flat and I did not want to traumatize the bleeding site and induce significant bleeding, I placed three clips in the immediate vicinity of the probable bleeding site because I could not get the clips exactly where I wanted them. No significant bleeding was induced by this. I then used the heater probe and applied it three times at the suspected bleeding site. Good burn was achieved and no significant bleeding induced. I then brought the scope back to the anterior duodenal bulb where there was an ulcer with a more suspicious looking vessel, although it did not have a clot on it was not bleeding at this time. I went ahead and placed a single hemostatic clip right next to the suspected vessel and cauterized with the heater probe, again with the very good burn but no bleeding induced. Biopsies were obtained from the gastric antrum to check for Helicobacter pylori status, although the ulcer may very well have been due to the recent use of aspirin and his history of ulcer. COMPLICATIONS: None immediate. RECOMMENDATIONS AND FOLLOWUP: 1. Follow up biopsy results obtained today. 2. Monitor patient in ICU for recurrent bleeding. I anticipate that he will have melena given the large amount of blood and altered blood that was in the stomach. Transfuse as needed to keep hemoglobin above 7.5. Proton pump infusion. Clear liquid diet only for now. JCM:tc Job ID: [id number] Doc ID: [id number] Zachary Bhandari PA-C
[2017-06-09] MEDS ORDERED: ONDANSETRON 4 MG/2 ML VIAL IV PRN (10:58)
[2017-06-09] MEDS ORDERED: ACETAMINOPHEN 325 MG TABLET PO PRN (10:58)
[2017-06-09] MEDS ORDERED: HYDROcodone/APAP 10/325MG TABLET PO PRN (10:58)
--- NOTE | 2017-06-09 15:34 | Internal Med Progress Note ---
Medical - PN: Subj Patient information: Note initiated : 06/09/17 at 3:30 pm Service Date, if different from initiated Date: [] Patient: Jose A Zamudio 77 y/o M admitted on 06/08/17 for Vomiting/Upper GI Hemorrhage 2nd to Duodenal Ulcer. Chief Complaint: [] Interval history: pt presented with hematemesis yesterday four days after knee replacement and having been started on aspirin for dvt prophlyaxis. He does report hx of duodenal ulcer that bled many years ago. At EGD found to have large but superficial ulceration of duodenum. I removed an adherent clot then cauterized ulcer base and placed hemostatic clips. Today pt reports only minimal epigastric discomfort , no further vomiting, greatly reduced nausea. He tolerated clear liquids this a.m. then full liquids at lunch and is willing to try regular diet at supper tonight. does c/o knee pain. - Constitutional Vitals: Vital Signs Temp Pulse Resp BP Pulse Ox 98.3 F 68 18 146/65 93 06/09/17 07:00 06/09/17 13:34 06/09/17 07:00 06/09/17 12:01 06/09/17 13:34 Period Temp Pulse Resp BP Sys/Loving Pulse Ox Last 24 Hr 97.5 F-99.2 F 57-69 16-18 114-162/43-72 91-100 Intake and Output 06/09/17 06/09/17 06/09/17 05:59 13:59 21:59 Intake Total 1700 / 1700 1469 / 1469 Output Total 100 / 100 475 / 475 Balance 1600 / 1600 994 / 994 Intake & Output: Intake & Output 06/09/17 06/09/17 06/09/17 05:59 13:59 21:59 Intake Total 1700 / 1700 1469 / 1469 Output Total 100 / 100 475 / 475 Balance 1600 / 1600 994 / 994 Intake: IV 1100 / 1100 1389 / 1389 Sodium Chloride 0.9% 1,000 ml @ 1000 / 1000 1000 / 1000 100 mls/hr IV .Q10H ANDREW Rx#: [id number] Protonix 80 mg In Sodium 100 / 100 66 / 66 Chloride 0.9% 100 ml @ 8 MG/HR 10 mls/hr IV Q10H ANDREW Rx#: [id number] Oral 600 / 600 80 / 80 Output: Void Amount 100 / 100 475 / 475 Other: Meal Nourishment/Supplement Lunch Percent of Meal Consumed 100% 100% Feeding Ability Independent # Voids 1 # Bowel Movements 0 General appearance: cooperative, obese, no moderate distress - GI/Abdominal GI/Abdominal exam: Present: soft. Absent: firm, guarding, organomegaly, tenderness Medical - PN: Obj Da - Labs CBC & Chem 7: 06/09/17 11:30 06/09/17 03:05 Labs: Abnormal Lab Results 06/09/17 06/09/17 06/09/17 11:30 07:02 03:05 WBC RBC Hgb 7.6 L 8.1 L Hct 22.5 L 24.1 L POC Hct MCV MCH RDW Gran % Lymph % (Auto) Gran # Lymph # (Auto) Band Neutrophils % Nucleated RBCs RBC Morphology Macrocytosis VBG Lactic Acid Chloride Carbon Dioxide 31 H POC Total CO2 Anion Gap POC BUN BUN 37 H Creatinine 1.4 H POC Creatinine Glucose 125 H POC Glucose Calcium 8.1 L POC WB Ioniz Calcium AST ALT Urine Ketones Urine Urobilinogen 06/09/17 06/08/17 06/08/17 03:05 23:06 19:15 WBC RBC 2.09 L Hgb 7.5 L 7.9 L 9.1 L Hct 22.3 L 23.7 L 27.0 L POC Hct MCV 106.6 H MCH 36.0 H RDW 14.9 H Gran % Lymph % (Auto) Gran # Lymph # (Auto) Band Neutrophils % 13 H Nucleated RBCs 1 H RBC Morphology Abnorm A Macrocytosis 2+ A VBG Lactic Acid Chloride Carbon Dioxide POC Total CO2 Anion Gap POC BUN BUN Creatinine POC Creatinine Glucose POC Glucose Calcium POC WB Ioniz Calcium AST ALT Urine Ketones Urine Urobilinogen 06/08/17 06/08/17 06/08/17 15:02 13:00 10:27 WBC RBC Hgb 8.8 L Hct 26.6 L POC Hct MCV MCH RDW Gran % Lymph % (Auto) Gran # Lymph # (Auto) Band Neutrophils % Nucleated RBCs RBC Morphology Macrocytosis VBG Lactic Acid 2.3 H Chloride Carbon Dioxide POC Total CO2 Anion Gap POC BUN BUN Creatinine POC Creatinine Glucose POC Glucose Calcium POC WB Ioniz Calcium AST ALT Urine Ketones 20 A Urine Urobilinogen 2.0 A 10/15/17 10/15/17 10:20 10:20 WBC 13.7 H RBC 2.80 L Hgb 10.2 L Hct 30.0 L POC Hct 28.0 L MCV 107.2 H MCH 36.5 H RDW 14.8 H Gran % 87.2 H Lymph % (Auto) 8.0 L Gran # 12.0 H Lymph # (Auto) 1.1 L Band Neutrophils % Nucleated RBCs RBC Morphology Macrocytosis VBG Lactic Acid Chloride 95 L Carbon Dioxide POC Total CO2 34 H Anion Gap 20.0 H POC BUN 44 H BUN 37 H Creatinine 1.4 H POC Creatinine 1.4 H Glucose 171 H POC Glucose 169 H Calcium POC WB Ioniz Calcium 1.10 L AST 98 H ALT 60 H Urine Ketones Urine Urobilinogen Meds: Medications Acetaminophen (Tylenol) 650 mg PO Q4-6HP PRN PRN Reason: PAIN/FEVER > 101 Hydrocodone Bitart/Acetaminophen ([place] 10/325mg) 1 tab PO Q4HP PRN PRN Reason: Pain Last Admin: 06/09/17 13:30 Dose: 1 tab Atenolol (Tenormin) 50 mg PO DAILY ANDREW Pantoprazole Sodium 80 mg/ (Sodium Chloride) 100 mls @ 10 mls/hr IV Q10H ANDREW PRN Reason: 8 MG/HR Last Admin: 06/09/17 15:29 Dose: 8 mg/hr, 10 mls/hr Iron Carb/Multivit/Health And Social Care Teacher/Folic Acid (Multivitamin W/Minerals) 1 tab PO DAILY ANDREW Morphine Sulfate (Morphine) 4 mg IV Q2HP PRN PRN Reason: Pain Ondansetron HCl (Zofran) 4 mg IV Q4-6HP PRN PRN Reason: Nausea And Vomiting Sodium Chloride (Saline Flush) 10 ml IV Q8 ANDREW Last Admin: 06/09/17 15:00 Dose: Not Given Tramadol HCl (Ultram) 100 mg PO Q8HP PRN PRN Reason: Pain Medical - PN: A/P - Time Spent With Patient Total time spent is greater than 50% in coordination of care (as documented) at patient's floor/unit and/or counseling patient: (1) Duodenal ulcer with hemorrhage Problem details: Source of upper GI bleed Status: Acute Current Visit: Yes - Narrative A/P Narrative: would continue PPI Rx. Await the results of biopsies for H. pylori even though the use of aspirin was probably the cause of ulcer. Advance to regular diet as tolerated at supper tonight. For DVT prophlyaxis I would not use aspirin. Heparin or Lovenox would be acceptable even with recent bleed. If adequate, compression leg devices would be ideal. For pain at knee, Tramadol has been tolerated by pt and would not exacerbate his GI bleeding. OK with GI for transfer out of ICU bed. Medical - PN: Qual - VTE Deep Vein Thrombosis/Pulmonary Embolism Present on Admission: No
--- NOTE | 2017-06-09 18:48 | Internal Med Progress Note ---
Medical - PN: Subj Patient information: Note initiated : 06/09/17 at 6:46 pm Service Date, if different from initiated Date: [] Patient: Jose A Zamudio 77 y/o M admitted on 06/08/17 for Vomiting/Upper GI Hemorrhage 2nd to Duodenal Ulcer. Chief Complaint: Follow-up GI bleed Interval history: June 09: Minimal epigastric pain today. Tolerating clears. No further hematemesis, no melena. Does have pain in the knee. Discussed the case with Dr. Horn from [facility]. For DVT prophylaxis, his first choice would be low-dose warfarin 3 mg/day. If not, then CIARA hose and early ambulation. He tends to avoid heparins. - Constitutional Vitals: Vital Signs Temp Pulse Resp BP Pulse Ox 98.6 F 68 18 143/60 94 06/09/17 16:01 06/09/17 13:34 06/09/17 07:00 06/09/17 16:01 06/09/17 16:01 Period Temp Pulse Resp BP Sys/Loving Pulse Ox Last 24 Hr 97.8 F-99.2 F 57-69 16-18 125-162/53-72 92-96 Intake and Output 06/09/17 06/09/17 06/09/17 05:59 13:59 21:59 Intake Total 1700 / 1700 1469 / 1469 300 / 300 Output Total 100 / 100 475 / 475 150 / 150 Balance 1600 / 1600 994 / 994 150 / 150 Intake & Output: Intake & Output 06/09/17 06/09/17 06/09/17 05:59 13:59 21:59 Intake Total 1700 / 1700 1469 / 1469 300 / 300 Output Total 100 / 100 475 / 475 150 / 150 Balance 1600 / 1600 994 / 994 150 / 150 Intake: IV 1100 / 1100 1389 / 1389 Sodium Chloride 0.9% 1,000 ml @ 1000 / 1000 1000 / 1000 100 mls/hr IV .Q10H [facility] Rx#: [id number] Protonix 80 mg In Sodium 100 / 100 66 / 66 Chloride 0.9% 100 ml @ 8 MG/HR 10 mls/hr IV Q10H [facility] Rx#: [id number] Oral 600 / 600 80 / 80 300 / 300 Output: Void Amount 100 / 100 475 / 475 150 / 150 Other: Meal Nourishment/Supplement Lunch Lunch Percent of Meal Consumed 100% 100% 100% Feeding Ability Independent # Voids 1 # Bowel Movements 0 - Additional findings Additional findings: General: In bed, in good spirits, no acute distress Chest: Clear, no rales Cardiovascular: Regular, 1+ right lower extremity edema Abdomen: Soft, very mild epigastric tenderness, no guarding or rebound. Extremities: Right lower extremity surgical dressing is in place, 2+ dorsalis pedis pulse, 1+ edema Neuro: Alert, oriented 3, nonfocal Medical - PN: Obj Da - Labs CBC & Chem 7: 06/09/17 11:30 06/09/17 03:05 Labs: Abnormal Lab Results 06/09/17 06/09/17 06/09/17 11:30 07:02 03:05 WBC RBC Hgb 7.6 L 8.1 L Hct 22.5 L 24.1 L POC Hct MCV MCH RDW Gran % Lymph % (Auto) Gran # Lymph # (Auto) Band Neutrophils % Nucleated RBCs RBC Morphology Macrocytosis VBG Lactic Acid Chloride Carbon Dioxide 31 H POC Total CO2 Anion Gap POC BUN BUN 37 H Creatinine 1.4 H POC Creatinine Glucose 125 H POC Glucose Calcium 8.1 L POC WB Ioniz Calcium AST ALT Urine Ketones Urine Urobilinogen 06/09/17 06/08/17 06/08/17 03:05 23:06 19:15 WBC RBC 2.09 L Hgb 7.5 L 7.9 L 9.1 L Hct 22.3 L 23.7 L 27.0 L POC Hct MCV 106.6 H MCH 36.0 H RDW 14.9 H Gran % Lymph % (Auto) Gran # Lymph # (Auto) Band Neutrophils % 13 H Nucleated RBCs 1 H RBC Morphology Abnorm A Macrocytosis 2+ A VBG Lactic Acid Chloride Carbon Dioxide POC Total CO2 Anion Gap POC BUN BUN Creatinine POC Creatinine Glucose POC Glucose Calcium POC WB Ioniz Calcium AST ALT Urine Ketones Urine Urobilinogen 06/08/17 06/08/17 06/08/17 15:02 13:00 10:27 WBC RBC Hgb 8.8 L Hct 26.6 L POC Hct MCV MCH RDW Gran % Lymph % (Auto) Gran # Lymph # (Auto) Band Neutrophils % Nucleated RBCs RBC Morphology Macrocytosis VBG Lactic Acid 2.3 H Chloride Carbon Dioxide POC Total CO2 Anion Gap POC BUN BUN Creatinine POC Creatinine Glucose POC Glucose Calcium POC WB Ioniz Calcium AST ALT Urine Ketones 20 A Urine Urobilinogen 2.0 A 06/08/17 06/08/17 10:20 10:20 WBC 13.7 H RBC 2.80 L Hgb 10.2 L Hct 30.0 L POC Hct 28.0 L MCV 107.2 H MCH 36.5 H RDW 14.8 H Gran % 87.2 H Lymph % (Auto) 8.0 L Gran # 12.0 H Lymph # (Auto) 1.1 L Band Neutrophils % Nucleated RBCs RBC Morphology Macrocytosis VBG Lactic Acid Chloride 95 L Carbon Dioxide POC Total CO2 34 H Anion Gap 20.0 H POC BUN 44 H BUN 37 H Creatinine 1.4 H POC Creatinine 1.4 H Glucose 171 H POC Glucose 169 H Calcium POC WB Ioniz Calcium 1.10 L AST 98 H ALT 60 H Urine Ketones Urine Urobilinogen Meds: Medications Acetaminophen (Tylenol) 650 mg PO Q4-6HP PRN PRN Reason: PAIN/FEVER > 101 Hydrocodone Bitart/Acetaminophen ([place] 10/325mg) 1 tab PO Q4HP PRN PRN Reason: Pain Last Admin: 06/09/17 13:30 Dose: 1 tab Atenolol (Tenormin) 50 mg PO DAILY [facility] Pantoprazole Sodium 80 mg/ (Sodium Chloride) 100 mls @ 10 mls/hr IV Q10H [facility] PRN Reason: 8 MG/HR Last Admin: 06/09/17 15:29 Dose: 8 mg/hr, 10 mls/hr Iron Carb/Multivit/[place]/Folic Acid (Multivitamin W/Minerals) 1 tab PO DAILY [facility] Morphine Sulfate (Morphine) 4 mg IV Q2HP PRN PRN Reason: Pain Ondansetron HCl (Zofran) 4 mg IV Q4-6HP PRN PRN Reason: Nausea And Vomiting Sodium Chloride (Saline Flush) 10 ml IV Q8 [facility] Last Admin: 06/09/17 15:00 Dose: Not Given Tramadol HCl (Ultram) 100 mg PO Q8HP PRN PRN Reason: Pain Medical - PN: A/P (1) Elevated serum creatinine Problem details: Cr 1.3 pre-op before knee surgery; no mention of CKD in records Status: Chronic Current Visit: Yes (2) Hyperglycemia Problem details: No mention of DM, glucose 171 on metabolic panel Status: Acute Current Visit: Yes (3) Anemia Status: Acute Current Visit: Yes (4) Upper GI hemorrhage Status: Acute Current Visit: Yes (5) Duodenal ulcer with hemorrhage Problem details: Source of upper GI bleed Status: Acute Current Visit: Yes - Narrative A/P Narrative: 77-year-old gentleman who presented on postop day #4 after right total knee replacement, on 325 mg of aspirin twice a day for DVT prophylaxis, presents with nausea and emesis of bloody/dark material consistent with GI bleed. Upper GI hemorrhage secondary to duodenal ulcer. Ulcer 2 discovered on EGD, clips were placed. At risk for rebleed in the next 24-48 hours. Initial hemoglobin 10.2, follow-up hemoglobin after fluids and ongoing emesis of bloody material is currently pending. Hemodynamically remains stable. Plan: Change to telemetry status, continue PPI infusion (likely to BID dosing tomorrow), follow serial H/H, transfuse to keep above 7. No aspirin and NSAIDs. Osteoarthritis, status post right total knee arthroplasty on June 04. Plan: Pain control, will use Toradol at his request; ASA stopped, currently SCDs for DVT prophylaxis. Discussed with Dr. Horn, his preference would be low dose warfarin (3 mg a day), if that would be safe from a GI standpoint. Otherwise CIARA hose and early ambulation. He prefers to avoid heparins. Continue PT while in house. Hypertension, on atenolol at home. Currently hemodynamically stable. Plan: Atenolol ordered, hold if hemodynamics become unstable. Elevated serum creatinine, 1.3 and preoperative labs prior to knee operation, 1.4 today. No history of chronic kidney disease noted in records, (though brief records), the patient denies a history of renal disease. Suspect he may have CKD, stage III. Plan: Monitor creatinine. Hyperglycemia on admission metabolic panel. No history of diabetes noted. Glucose 125 on BMP Friday AM. Plan: Monitor. CODE STATUS full code, though the patient would not want prolonged life support Medical - PN: Qual - VTE Deep Vein Thrombosis/Pulmonary Embolism Present on Admission: No
[2017-06-09] MEDS: traMADol 50 MG TABLET PO PRN (21:49)
[2017-06-10] MEDS ORDERED: 0.9 % SODIUM CHLORIDE 250 ML IV SCH (01:00)
[2017-06-10] MEDS: PANTOPRAZOLE 80 MG in 0.9 % SODIUM CHLORIDE 100 ML IV SCH (01:16)
[2017-06-10] MEDS: 0.9 % SODIUM CHLORIDE 10 ML SYRINGE IV SCH ×3 (05:46→22:25)
[2017-06-10 07:28] LABS: Blood Urea Nitrogen 27 mg/dl (8-23)
[2017-06-10] MEDS: traMADol 50 MG TABLET PO PRN ×2 (08:00→17:03)
[2017-06-10] MEDS ORDERED: ATENOLOL 50 MG TABLET PO SCH (09:00)
[2017-06-10] MEDS ORDERED: MULTIVIT,THER IRON,CA,FA & MIN 1 TABLET PO SCH (09:00)
[2017-06-10] MEDS ORDERED: ACETAMINOPHEN 325 MG TABLET PO PRN (10:22)
[2017-06-10] MEDS ORDERED: HYDROcodone/APAP 10/325MG TABLET PO PRN (10:22)
[2017-06-10] MEDS ORDERED: ONDANSETRON 4 MG/2 ML VIAL IV PRN (10:22)
--- NOTE | 2017-06-10 10:22 | Internal Med Progress Note ---
Medical - PN: Subj Patient information: Note initiated : 06/10/17 at 10:20 am Service Date, if different from initiated Date: [] Patient: Jose A Zamudio 77 y/o M admitted on 06/08/17 for Vomiting/Upper GI Hemorrhage 2nd to Duodenal Ulcer. Chief Complaint: follow-up GI bleed Interval history: June 09: Minimal epigastric pain today. Tolerating clears. No further hematemesis, no melena. Does have pain in the knee. Discussed the case with Dr. Horn from [facility] though. For DVT prophylaxis, his first choice would be low-dose warfarin 3 mg/day. If not, then CIARA hose and early ambulation. He tends to avoid heparins. June 10: Hemoglobin drifted down yesterday, was 6.6. Received 2 units packed red blood cells overnight without complication. Feels much better today. Appetite is good. Stable to get up with physical therapy today. No epigastric pain. He is passed flatus, no bloody bowel movements, no melena. - Constitutional Vitals: Vital Signs Temp Pulse Resp BP Pulse Ox 97.7 F 56 L 18 162/68 96 06/10/17 07:34 06/10/17 07:43 06/10/17 07:34 06/10/17 07:34 06/10/17 08:00 Period Temp Pulse Resp BP Sys/Loving Pulse Ox Last 24 Hr 97.1 F-98.8 F 16- 16-18 125-162/53-68 92-97 Intake and Output 06/09/17 06/10/17 06/10/17 21:59 05:59 13:59 Intake Total 900 / 900 900 / 900 650 / 650 Output Total 250 / 250 150 / 150 350 / 350 Balance 650 / 650 750 / 750 300 / 300 Weight 211 lb Intake & Output: Intake & Output 06/09/17 06/10/17 06/10/17 21:59 05:59 13:59 Intake Total 900 / 900 900 / 900 650 / 650 Output Total 250 / 250 150 / 150 350 / 350 Balance 650 / 650 750 / 750 300 / 300 Weight 211 lb Intake: IV 100 / 100 Protonix 80 mg In Sodium 100 / 100 Chloride 0.9% 100 ml @ 8 MG/HR 10 mls/hr IV Q10H [facility] Rx#: [id number] Oral 900 / 900 150 / 150 650 / 650 Blood Product 650 / 650 Output: Void Amount 250 / 250 150 / 150 350 / 350 Other: Meal Dinner Breakfast Percent of Meal Consumed 30 100% # Bowel Movements 0 - Additional findings Additional findings: General: Sitting up in chair, looks well, no acute distress Chest: Clear to auscultation, respirations unlabored Cardiovascular: Regular rate and rhythm, 1+ right lower extremity edema ( postoperative leg). Abdomen: No epigastric tenderness, active bowel sounds. Musculoskeletal: Right knee with dressing in place, clean and dry. Right lower extremity is neurovascularly intact. Neuro: Alert, oriented 3, nonfocal. Medical - PN: Obj Da - Labs CBC & Chem 7: 06/10/17 05:40 06/10/17 05:40 Labs: Abnormal Lab Results 06/10/17 06/10/17 06/09/17 05:40 05:40 23:10 WBC RBC Hgb 9.7 L 6.6 L* Hct 28.4 L 19.9 L* POC Hct MCV MCH RDW Gran % Lymph % (Auto) Gran # Lymph # (Auto) Band Neutrophils % Nucleated RBCs RBC Morphology Macrocytosis VBG Lactic Acid Chloride Carbon Dioxide POC Total CO2 Anion Gap POC BUN BUN 27 H Creatinine 1.4 H POC Creatinine Glucose POC Glucose Calcium 7.7 L POC WB Ioniz Calcium AST ALT Urine Ketones Urine Urobilinogen 06/09/17 06/09/17 06/09/17 11:30 07:02 03:05 WBC RBC Hgb 7.6 L 8.1 L Hct 22.5 L 24.1 L POC Hct MCV MCH RDW Gran % Lymph % (Auto) Gran # Lymph # (Auto) Band Neutrophils % Nucleated RBCs RBC Morphology Macrocytosis VBG Lactic Acid Chloride Carbon Dioxide 31 H POC Total CO2 Anion Gap POC BUN BUN 37 H Creatinine 1.4 H POC Creatinine Glucose 125 H POC Glucose Calcium 8.1 L POC WB Ioniz Calcium AST ALT Urine Ketones Urine Urobilinogen 06/09/17 06/08/17 06/08/17 03:05 23:06 19:15 WBC RBC 2.09 L Hgb 7.5 L 7.9 L 9.1 L Hct 22.3 L 23.7 L 27.0 L POC Hct MCV 106.6 H MCH 36.0 H RDW 14.9 H Gran % Lymph % (Auto) Gran # Lymph # (Auto) Band Neutrophils % 13 H Nucleated RBCs 1 H RBC Morphology Abnorm A Macrocytosis 2+ A VBG Lactic Acid Chloride Carbon Dioxide POC Total CO2 Anion Gap POC BUN BUN Creatinine POC Creatinine Glucose POC Glucose Calcium POC WB Ioniz Calcium AST ALT Urine Ketones Urine Urobilinogen 06/08/17 06/08/17 06/08/17 15:02 13:00 10:27 WBC RBC Hgb 8.8 L Hct 26.6 L POC Hct MCV MCH RDW Gran % Lymph % (Auto) Gran # Lymph # (Auto) Band Neutrophils % Nucleated RBCs RBC Morphology Macrocytosis VBG Lactic Acid 2.3 H Chloride Carbon Dioxide POC Total CO2 Anion Gap POC BUN BUN Creatinine POC Creatinine Glucose POC Glucose Calcium POC WB Ioniz Calcium AST ALT Urine Ketones 20 A Urine Urobilinogen 2.0 A 06/08/17 06/08/17 10:20 10:20 WBC 13.7 H RBC 2.80 L Hgb 10.2 L Hct 30.0 L POC Hct 28.0 L MCV 107.2 H MCH 36.5 H RDW 14.8 H Gran % 87.2 H Lymph % (Auto) 8.0 L Gran # 12.0 H Lymph # (Auto) 1.1 L Band Neutrophils % Nucleated RBCs RBC Morphology Macrocytosis VBG Lactic Acid Chloride 95 L Carbon Dioxide POC Total CO2 34 H Anion Gap 20.0 H POC BUN 44 H BUN 37 H Creatinine 1.4 H POC Creatinine 1.4 H Glucose 171 H POC Glucose 169 H Calcium POC WB Ioniz Calcium 1.10 L AST 98 H ALT 60 H Urine Ketones Urine Urobilinogen Meds: Medications Acetaminophen (Tylenol) 650 mg PO Q4-6HP PRN PRN Reason: PAIN/FEVER > 101 Hydrocodone Bitart/Acetaminophen ([place] 10/325mg) 1 tab PO Q4HP PRN PRN Reason: Pain Last Admin: 06/09/17 13:30 Dose: 1 tab Atenolol (Tenormin) 50 mg PO DAILY [facility] Last Admin: 06/10/17 07:59 Dose: 25 mg Pantoprazole Sodium 80 mg/ (Sodium Chloride) 100 mls @ 10 mls/hr IV Q10H [facility] PRN Reason: 8 MG/HR Last Admin: 06/10/17 01:16 Dose: 8 mg/hr, 10 mls/hr Sodium Chloride (Sodium Chloride 0.9%) 250 mls @ 20 mls/hr IV .[id number] [facility] Stop: 06/10/17 13:29 Last Admin: 06/10/17 01:18 Dose: 20 mls/hr Iron Carb/Multivit/[employer]/Folic Acid (Multivitamin W/Minerals) 1 tab PO DAILY [facility] Last Admin: 06/10/17 07:59 Dose: 1 tab Morphine Sulfate (Morphine) 4 mg IV Q2HP PRN PRN Reason: Pain Ondansetron HCl (Zofran) 4 mg IV Q4-6HP PRN PRN Reason: Nausea And Vomiting Sodium Chloride (Saline Flush) 10 ml IV Q8 [facility] Last Admin: 06/10/17 05:46 Dose: 10 ml Tramadol HCl (Ultram) 100 mg PO Q8HP PRN PRN Reason: Pain Last Admin: 06/10/17 08:00 Dose: 100 mg Medical - PN: A/P - Time Spent With Patient Total time spent is greater than 50% in coordination of care (as documented) at patient's floor/unit and/or counseling patient: (1) Elevated serum creatinine Problem details: Cr 1.3 pre-op before knee surgery; no mention of CKD in records Status: Chronic Current Visit: Yes (2) Hyperglycemia Problem details: No mention of DM, glucose 171 on metabolic panel Status: Acute Current Visit: Yes (3) Anemia Status: Acute Current Visit: Yes (4) Upper GI hemorrhage Status: Acute Current Visit: Yes (5) Duodenal ulcer with hemorrhage Problem details: Source of upper GI bleed Status: Acute Current Visit: Yes - Narrative A/P Narrative: 77-year-old gentleman who presented on postop day #4 after right total knee replacement, on 325 mg of aspirin twice a day for DVT prophylaxis, presents with nausea and emesis of bloody/dark material consistent with GI bleed. Upper GI hemorrhage secondary to duodenal ulcer. DU discovered on EGD, clips were placed. Hemoglobin drifted down, status post 2 units PRBC overnight Hemodynamics have remained stable. Plan: Continue to follow H/H, stop telemetry, change PPI to BID dosing. Transfuse to keep above 7. No aspirin and NSAIDs. Osteoarthritis, status post right total knee arthroplasty on June 04. Plan: Pain control, will use tramadol (not Toradol as charted in error yesterday ) at his request; ASA stopped, currently SCDs for DVT prophylaxis. Discussed with Dr. Horn, his preference would be low dose warfarin (3 mg a day), if that would be safe from a GI standpoint. Otherwise CIARA hose and early ambulation. He prefers to avoid heparins. Continue PT while in house. Hypertension, on atenolol at home. Currently hemodynamically stable. Plan: Continue atenolol ordered. Elevated serum creatinine, 1.3 and preoperative labs prior to knee operation, remains 1.4 today. No history of chronic kidney disease noted in records, ( though brief records), the patient denies a history of renal disease. Suspect he may have CKD, stage III. Plan: Monitor creatinine. Hyperglycemia on admission metabolic panel. No history of diabetes noted. Glucose 125 on BMP Friday AM. Plan: Monitor. CODE STATUS full code, though the patient would not want prolonged life support Medical - PN: Qual - VTE Deep Vein Thrombosis/Pulmonary Embolism Present on Admission: No
--- NOTE | 2017-06-10 11:35 | Surgical Pathology Report ---
HISTOLOGY SPECIMEN MICROSCOPIC DIAGNOSIS STOMACH, BIOPSY: -- MILD CHRONIC GASTRITIS. -- ALCIAN YELLOW STAIN IS NEGATIVE FOR HELICOBACTER ORGANISMS (ADEQUATE TECHNICAL CONTROL). -- NO EVIDENCE OF INTESTINAL METAPLASIA, DYSPLASIA, OR MALIGNANCY. ([facility]:jesus) CLINICAL HISTORY Mildly tender at epigastric; hematemesis. PROCEDURAL IMPRESSION Duodenal ulcers; rule out H. pylori. GROSS DESCRIPTION Received in formalin labeled antrum gastric biopsy, are two la tissue fragments 0.3 and 0.4 cm. Totally submitted - one cassette. ([facility]:bette) Electronically Signed by: Margot Jones D.O.
[2017-06-10] MEDS: PANTOPRAZOLE 40 MG VIAL IV SCH (16:58)
[2017-06-11] MEDS: traMADol 50 MG TABLET PO PRN ×2 (05:00→13:54)
[2017-06-11] MEDS: 0.9 % SODIUM CHLORIDE 10 ML SYRINGE IV SCH ×3 (05:01→21:30)
[2017-06-11 06:48] LABS: Blood Urea Nitrogen 23 mg/dl (8-23)
[2017-06-11] MEDS: PANTOPRAZOLE 40 MG VIAL IV SCH (07:23)
[2017-06-11] MEDS: ATENOLOL 50 MG TABLET PO SCH (08:59)
[2017-06-11] MEDS: MULTIVIT,THER IRON,CA,FA & MIN 1 TABLET PO SCH (08:59)
--- NOTE | 2017-06-11 13:12 | Internal Med Progress Note ---
Medical - PN: Subj Patient information: Note initiated : 06/11/17 at 1:05 pm Service Date, if different from initiated Date: [] Patient: Jose A Zamudio 77 y/o M admitted on 06/08/17 for Vomiting/Upper GI Hemorrhage 2nd to Duodenal Ulcer. Chief Complaint: f/u GI Bleed Interval history: June 09: Minimal epigastric pain today. Tolerating clears. No further hematemesis, no melena. Does have pain in the knee. Discussed the case with Dr. Horn from [facility] though. For DVT prophylaxis, his first choice would be low-dose warfarin 3 mg/day. If not, then CIARA hose and early ambulation. He tends to avoid heparins. June 10: Hemoglobin drifted down yesterday, was 6.6. Received 2 units packed red blood cells overnight without complication. Feels much better today. Appetite is good. Stable to get up with physical therapy today. No epigastric pain. He is passed flatus, no bloody bowel movements, no melena. June 11: Feels better today, has been working with physical therapy. Hemoglobin slowly increasing, though pending from today. Slowly approaching the point he was prior to discharge after total knee, in terms of mobility. No melena. Pain in the knee controlled with tramadol. - Constitutional Vitals: Vital Signs Temp Pulse Resp BP Pulse Ox 97.6 F 60 20 147/70 91 06/11/17 11:38 06/11/17 03:06 06/11/17 11:38 06/11/17 11:38 06/11/17 11:38 Period Temp Pulse Resp BP Sys/Loving Pulse Ox Last 24 Hr 97.6 F-98.5 F 59-62 16-20 130-157/59-73 90-94 Intake and Output 06/10/17 06/11/17 06/11/17 21:59 05:59 13:59 Intake Total 120 / 120 125 / 125 180 / 180 Output Total 150 / 150 325 / 325 Balance -30 / -30 -200 / -200 180 / 180 Weight 213 lb 8 oz Intake & Output: Intake & Output 06/10/17 06/11/17 06/11/17 21:59 05:59 13:59 Intake Total 120 / 120 125 / 125 180 / 180 Output Total 150 / 150 325 / 325 Balance -30 / -30 -200 / -200 180 / 180 Weight 213 lb 8 oz Intake: Oral 120 / 120 125 / 125 180 / 180 Output: Void Amount 150 / 150 325 / 325 Other: # Voids 1 - Additional findings Additional findings: General: Awake, alert, no acute distress Chest: Clear to auscultation bilaterally Cardiovascular: Regular, no rales Abdomen: Soft, nontender, active bowel sounds Musculoskeletal: Right knee with dressing in place, dry, trace lower extremity edema Neuro: Awake, alert, oriented 3, nonfocal. Medical - PN: Obj Da - Labs CBC & Chem 7: 06/10/17 14:06 06/11/17 04:22 Labs: Abnormal Lab Results 06/11/17 06/10/17 06/10/17 04:22 14:06 10:04 RBC Hgb 10.4 L 9.7 L Hct 30.3 L 28.3 L MCV MCH RDW Band Neutrophils % Nucleated RBCs RBC Morphology Macrocytosis Carbon Dioxide BUN Creatinine 1.3 H Glucose Calcium 8.0 L Urine Ketones Urine Urobilinogen 06/10/17 06/10/17 06/09/17 05:40 05:40 23:10 RBC Hgb 9.7 L 6.6 L* Hct 28.4 L 19.9 L* MCV MCH RDW Band Neutrophils % Nucleated RBCs RBC Morphology Macrocytosis Carbon Dioxide BUN 27 H Creatinine 1.4 H Glucose Calcium 7.7 L Urine Ketones Urine Urobilinogen 06/09/17 06/09/17 06/09/17 11:30 07:02 03:05 RBC Hgb 7.6 L 8.1 L Hct 22.5 L 24.1 L MCV MCH RDW Band Neutrophils % Nucleated RBCs RBC Morphology Macrocytosis Carbon Dioxide 31 H BUN 37 H Creatinine 1.4 H Glucose 125 H Calcium 8.1 L Urine Ketones Urine Urobilinogen 06/09/17 06/08/17 06/08/17 03:05 23:06 19:15 RBC 2.09 L Hgb 7.5 L 7.9 L 9.1 L Hct 22.3 L 23.7 L 27.0 L MCV 106.6 H MCH 36.0 H RDW 14.9 H Band Neutrophils % 13 H Nucleated RBCs 1 H RBC Morphology Abnorm A Macrocytosis 2+ A Carbon Dioxide BUN Creatinine Glucose Calcium Urine Ketones Urine Urobilinogen 06/08/17 06/08/17 15:02 13:00 RBC Hgb 8.8 L Hct 26.6 L MCV MCH RDW Band Neutrophils % Nucleated RBCs RBC Morphology Macrocytosis Carbon Dioxide BUN Creatinine Glucose Calcium Urine Ketones 20 A Urine Urobilinogen 2.0 A Meds: Medications Acetaminophen (Tylenol) 650 mg PO Q4-6HP PRN PRN Reason: PAIN/FEVER > 101 Hydrocodone Bitart/Acetaminophen ([place] 10/325mg) 1 tab PO Q4HP PRN PRN Reason: Pain Atenolol (Tenormin) 50 mg PO DAILY [facility] Last Admin: 06/11/17 08:59 Dose: 50 mg Iron Carb/Multivit/[place]/Folic Acid (Multivitamin W/Minerals) 1 tab PO DAILY [facility] Last Admin: 06/11/17 08:59 Dose: 1 tab Morphine Sulfate (Morphine) 4 mg IV Q2HP PRN PRN Reason: Pain Ondansetron HCl (Zofran) 4 mg IV Q4-6HP PRN PRN Reason: Nausea And Vomiting Pantoprazole Sodium (Protonix) 40 mg PO QAMAC [facility] Sodium Chloride (Saline Flush) 10 ml IV Q8 [facility] Last Admin: 06/11/17 05:01 Dose: 10 ml Tramadol HCl (Ultram) 100 mg PO Q8HP PRN PRN Reason: Pain Last Admin: 06/11/17 05:00 Dose: 100 mg Warfarin Sodium (Coumadin) 3 mg PO DAILY@1400 [facility] Medical - PN: A/P (1) Elevated serum creatinine Problem details: Cr 1.3 pre-op before knee surgery; no mention of CKD in records Status: Chronic Current Visit: Yes (2) Hyperglycemia Problem details: No mention of DM, glucose 171 on metabolic panel at admission; resolved Status: Resolved Current Visit: Yes (3) Anemia Status: Acute Current Visit: Yes (4) Upper GI hemorrhage Status: Acute Current Visit: Yes (5) Duodenal ulcer with hemorrhage Problem details: Source of upper GI bleed Status: Acute Current Visit: Yes - Narrative A/P Narrative: 77-year-old gentleman who presented on postop day #4 after right total knee replacement, on 325 mg of aspirin twice a day for DVT prophylaxis, presents with nausea and emesis of bloody/dark material consistent with GI bleed. Upper GI hemorrhage secondary to duodenal ulcer. DU discovered on EGD, clips were placed. Hemoglobin drifted down, status post 2 units PRBC overnight Mon- Tu, then stable. Hemodynamics have remained stable. Plan: Follow H/H, change to daily PO PPI, no aspirin and NSAIDs. D/W Dr. Matson. Osteoarthritis, status post right total knee arthroplasty on June 04. Plan: Pain control, will use tramadol at his request; ASA stopped, currently SCDs for DVT prophylaxis. Discussed with Dr. Horn, his preference would be low dose warfarin (3 mg a day), if that would be safe from a GI standpoint--> discussed with Dr. Matson, should be OK with healing ulcer and not at risk to cause new PUD. Continue CIARA hose and early ambulation. Continue PT while in house. Hypertension, on atenolol at home. Currently hemodynamically stable. Plan: Continue atenolol ordered. Elevated serum creatinine, 1.3 and preoperative labs prior to knee operation, remains 1.4 today. No history of chronic kidney disease noted in records, ( though brief records), the patient denies a history of renal disease. Suspect he may have CKD, stage III. Plan: Monitor creatinine. Hyperglycemia on admission metabolic panel. No history of diabetes noted. Glucose now normalized. Likely secondary to stress. Plan: Monitor. Dispo: Likely able to discharge tomorrow, back home with outpatient PT. CODE STATUS full code, though the patient would not want prolonged life support Medical - PN: Qual - VTE Deep Vein Thrombosis/Pulmonary Embolism Present on Admission: No
[2017-06-11] MEDS ORDERED: WARFARIN 3 MG TABLET PO SCH (14:00)
[2017-06-11 14:11] LABS: Mean Cell Volume 102.3 fL (80.0-100.0); Mean Corpuscular HGB Conc 34.2 g/dL (31.0-36.0); Platelet Count 199 K/mcL (140-440); RBC 2.78 M/mcL (4.50-5.90); Red Cell Distribution Width 16.8 % (11.5-14.5)
[2017-06-12] MEDS: traMADol 50 MG TABLET PO PRN ×2 (01:20→09:15)
[2017-06-12 05:11] LABS: Mean Cell Volume 102.1 fL (80.0-100.0); Mean Corpuscular HGB Conc 34.1 g/dL (31.0-36.0); Mean Corpuscular Hemoglobin 34.8 pg (26.0-34.0); Platelet Count 211 K/mcL (140-440); RBC 2.73 M/mcL (4.50-5.90); Red Cell Distribution Width 16.5 % (11.5-14.5)
[2017-06-12 05:20] LABS: Blood Urea Nitrogen 20 mg/dl (8-23)
[2017-06-12] MEDS: 0.9 % SODIUM CHLORIDE 10 ML SYRINGE IV SCH (05:38)
[2017-06-12] MEDS ORDERED: PANTOPRAZOLE 40 MG TABLET PO SCH (07:30)
[2017-06-12] MEDS: MULTIVIT,THER IRON,CA,FA & MIN 1 TABLET PO SCH (08:22)
[2017-06-12] MEDS: ATENOLOL 50 MG TABLET PO SCH (08:22)
--- NOTE | 2017-06-12 08:53 | Discharge Summary ---
Medical - DS: Prov Patient information: Note initiated : 06/12/17 at 8:51 am Service Date, if different from initiated Date: [] Patient: Jose A Zamudio 77 y/o M admitted on 06/08/17 for Vomiting/Upper GI Hemorrhage 2nd to Duodenal Ulcer. Chief Complaint: [] Date of admission: 06/08/17 14:55 Discharge date: 06/12/17 Primary care physician: Sneha Bhandari Admitting clinician: Helena Reed Consults: 06/08/17 12:19 Consult to Physician [CONS] Stat Comment: Consulting Provider: Zachary Matson Reason For Exam: Physician to Consult 06/08/17 12:32 Consult to Physician [CONS] Stat Comment: Consulting Provider: Helena Reed Reason For Exam: Physician to Consult Discharging clinician: Helena Reed Medical - DS: Meds - Discharge Medications Prescriptions: RX: Pantoprazole [Protonix] 40 mg PO QAMAC #30 tab RX: Warfarin [Coumadin] 3 mg PO DAILY@1400 #21 tab Active and Home Medications: Home Medications Better Bladder Ultra Blend Bladder Support Formula 2 cap PO DAILY 05/29/17 [ History Confirmed 06/08/17 Last Taken 06/03/17 08:00 2 caps] RX: Atenolol [Tenormin] 25 mg PO DAILY 05/29/17 [History Confirmed 06/08/17 Last Taken 06/04/17 05:30 25 mg.] RX: Multivitamin with Iron [Multivitamins with Iron] 1 tab PO DAILY 05/29/17 [ History Confirmed 06/08/17 Last Taken 06/03/17 08:00] RX: traMADol [Ultram] 100 mg PO Q8HP PRN 05/29/17 [History Confirmed 06/08/17 Last Taken 06/03/17 08:00 100 mg.] RX: Aspirin [Ecotrin] 325 mg PO BID #30 tab.ec 06/04/17 [Rx Confirmed 06/08/17 Last Taken Unknown] RX: HYDROcodone/APAP 10/325MG [[place] 10/325Mg] 1 - 2 tab PO Q4HP PRN #100 tab [Rx Confirmed 06/08/17 Last Taken Unknown] Medical - DS: Hosp Hospital course: Mr. Zamudio is a 77-year-old male with a history of osteoarthritis, who underwent right total knee replacement on June 04. He presented to the emergency department on postop day #4 with black/bloody hematemesis. He was admitted after undergoing EGD by Dr. Matson, which showed duodenal ulcer. It was cauterized and clipped. He was maintained on a PPI drip, H&H was monitored. He did receive transfusion of 2 units of packed red blood cells with stabilization of his blood counts. Etiology of the ulcer was likely aspirin therapy, he was on 325 mg twice a day postoperatively for DVT prophylaxis. This was stopped. He does have a prior history of peptic ulcer disease and should not receive nonsteroidals in the future. For further DVT prophylaxis initially was treated with SCDs and early ambulation. I discussed the case with Dr. Horn, his orthopedist, who is a second alternative would prefer warfarin 3 mg daily. I discussed this with Dr. Veloz, who felt once the ulcer was starting to heal towards discharge, he could be started on an anticoagulant, as long as nonsteroidals were avoided. Patient continued to work with physical therapy, he had reachieved his discharge goals on the day of discharge. He'll go home and continue with outpatient physical therapy. He'll be maintained on a PPI for 8 weeks while his ulcer heals. He'll follow- up with Dr. Veloz in 3-4 weeks. His H pylori biopsy was negative. Discharge diagnosis: Upper GI bleed due to duodenal ulcer Secondary discharge diagnosis: Osteoarthritis, s/p right total knee arthroplasty 06/04/17 Reason for admission: GI bleed Pertinent studies/significant findings: EGD 06/08/2017 PROCEDURE: Esophagogastroduodenoscopy with biopsies, heater probe cauterization for hemostasis and hemostatic clip placements. 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 PREOPERATIVE DIAGNOSIS: Hematemesis with epigastric pain 4 days after knee replacement and with history of duodenal ulcer. POSTOPERATIVE DIAGNOSIS: Large clot overlying duodenal ulcer and endoscopic intervention performed at the ulcer bleeding site as described. - Time Spent with Patient Total time spent providing and/or coordinating discharge services: Greater than 30 minutes Medical - DS: Exam - Constitutional Vitals: Vital Signs Temp Pulse Resp BP Pulse Ox 06/12/17 07:07 97.1 F 16 151/75 93 06/12/17 04:00 97.8 F 62 16 148/67 91 06/12/17 00:00 98.7 F 64 16 159/72 91 06/11/17 20:00 98.0 F 60 16 153/67 92 06/11/17 15:47 98.4 F 18 156/68 90 06/11/17 11:38 97.6 F 20 147/70 91 Intake and Output 06/11/17 06/12/17 06/12/17 21:59 05:59 13:59 Intake Total 1040 / 1040 50 / 50 720 / 720 Output Total 325 / 325 500 / 500 Balance 715 / 715 -450 / -450 720 / 720 Intake: Oral 1040 / 1040 50 / 50 720 / 720 Output: Void Amount 325 / 325 500 / 500 Other: Meal Dinner Breakfast Percent of Meal Consumed 75% 100% Feeding Ability Independent Independent # Voids 1 - Other Additional findings: General: Sitting up in bed in no acute distress Chest: Clear to auscultation, respirations unlabored Cardiovascular regular rate and rhythm, trace right lower extremity edema Abdomen: Soft, nontender, no epigastric tenderness, normal bowel sounds Skin: Right lower extremity wound dressed, postoperative ecchymoses present Neuro: Awake, alert, nonfocal Medical - DS: Data Labs on day of discharge: Labs from last 24 hours 06/12/17 06/12/17 06/12/17 03:46 03:46 03:46 WBC 8.5 RBC 2.73 L Hgb 9.5 L Hct 27.9 L MCV 102.1 H MCH 34.8 H MCHC 34.1 RDW 16.5 H Plt Count 211 MPV 9.7 PT 14.1 INR 1.1 Sodium 139 Potassium 3.8 Chloride 103 Carbon Dioxide 26 Anion Gap 10.0 BUN 20 Creatinine 1.4 H GFR Calculation 49 Glucose 101 Calcium 8.2 L 06/11/17 13:42 WBC 9.2 RBC 2.78 L Hgb 9.7 L Hct 28.4 L MCV 102.3 H MCH 35.0 H MCHC 34.2 RDW 16.8 H Plt Count 199 MPV 9.3 PT INR Sodium Potassium Chloride Carbon Dioxide Anion Gap BUN Creatinine GFR Calculation Glucose Calcium Medical - DS: A/P - Patient/Caregiver Discharge Instructions Activity: as per physical therapy, increase activity as tolerated Diet: Regular Diet Additional Instructions: Continue with PT as scheduled after discharge on 06/06/17 - Problem Maintenance (1) Elevated serum creatinine Status: Chronic Comment: Cr 1.3 pre-op before knee surgery; no mention of CKD in records (2) Hyperglycemia Status: Resolved Comment: No mention of DM, glucose 171 on metabolic panel at admission; resolved (3) Anemia Status: Acute Qualifiers: Anemia type: other cause Other causes of anemia: acute posthemorrhagic Qualified Code(s): D62 - Acute posthemorrhagic anemia (4) Upper GI hemorrhage Status: Resolved (5) Duodenal ulcer with hemorrhage Status: Resolved Comment: Source of upper GI bleed - Follow up Plan Follow up with: Sneha Bhandari PA-C [Primary Care Provider] - (1-2 weeks with recheck of CBC) Zachary Matson MD [Physician] - (3-4 weeks) Disposition: Home, Self-Care Prognosis: Good Rehab Potential: Good Medical - DS: Qual - VTE Deep Vein Thrombosis/Pulmonary Embolism Present on Admission: No
[2017-06-12] MEDS ORDERED: DOCUSATE SODIUM 100 MG CAPSULE PO SCH (09:00)
== END 2017-06-12 10:39 | disposition home or self-care (01) | DRG 378 ==
LOC: ED 09:58 → SUR 13:14 → ICU 14:55 → MEDSUR 06-10 15:19
PROVIDERS: ADMIT Internal Medicine; ATTEND Internal Medicine

== ENCOUNTER 2021-04-02 07:20 | Inpatient (IN) ==
[2021-04-02] MEDS ORDERED: PANTOPRAZOLE 40 MG VIAL IV ONE (07:39)
[2021-04-02] MEDS ORDERED: 0.9 % SODIUM CHLORIDE 250 ML IV SCH ×4 (07:45→23:45)
--- NOTE | 2021-04-02 07:51 | Emergency Department Note ---
HPI General Chief complaint: Bleeding Other Stated complaint: rectal bleeding Time Seen by Provider: 04/02/21 07:22 Source: patient Mode of arrival: wheelchair Limitations: no limitations History of Present Illness HPI Narrative: Patient is a 81-year-old gentleman who arrives the emergency department accompanied by his son complaining of GI bleeding. The patient says about 3 days ago he started to develop loose black stools reminiscent of prior GI bleeds. He then started to develop loose bloody stools several times a day beginning yesterday evening. Today, he started feeling very lightheaded and dizzy and was concerned he may have lost significant blood so he decided to come in for further evaluation. He has had similar symptoms in the past due to bleeding gastrointestinal ulcers. Nothing seems to make his symptoms any better or worse. He does not have any significant abdominal pain nausea or vomiting associated with his symptoms Related Data Home Medications Medication Instructions Recorded Confirmed Better Bladder Ultra Blend Bladder 2 cap PO DAILY 05/29/17 07/06/20 Support Formula atenolol 25 mg PO DAILY 05/29/17 07/06/20 multivitamin with iron [Daily 1 tab PO DAILY 05/29/17 07/06/20 Multiple Vitamins/Iron] diclofenac sodium 1 % topical gel 2 g TOPICAL QID 02/12/21 02/12/21 lidocaine 4 % topical patch 1 patch TOPICAL QDAY PRN 02/12/21 02/12/21 methocarbamol 750 mg tablet 750 mg PO TID 02/12/21 02/12/21 Allergies Allergy/AdvReac Type Severity Reaction Status Date / Time Penicillins Allergy Intermediate Swelling Verified 04/02/21 07:22 oxycodone [Oxycodone] AdvReac Mild Agitated Verified 04/02/21 07:22 Review of Systems ROS ROS Narrative: Narrative: All systems ED: reviewed and negative except as stated. Constitutional: Denies fever and chills Cardiovascular: Denies chest pain Respiratory: Denies shortness of breath and cough PFSH Narrative Patient History Narrative: Narrative: Medical/Surgical/Family History All Active Problems (Updated 04/02/21 @ 12:47 by Doug Garcia DO) Acute GI bleeding (Acute) Transaminitis (Acute) Symptomatic anemia (Acute) Thrombocytopenia (Acute) Coagulopathy (Acute) Hyperkalemia (Acute) [id number] kidney injury (Acute) Chronic CHF (Acute) Head injury (Acute) Elevated troponin (Acute) Acute exacerbation of CHF (congestive heart failure) (Acute) Elevated brain natriuretic peptide (BNP) level (Acute) Bimalleolar ankle fracture (Acute) 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) Sacroiliac joint pain (Chronic) Radiculopathy (Chronic) Low back pain (Chronic) Chronic pain (Chronic) Chronic left SI joint pain (Chronic) Upper GI hemorrhage (Chronic) Elevated serum creatinine (Chronic) Hyperglycemia (Chronic) Anemia (Chronic) Duodenal ulcer with hemorrhage (Chronic) Medical History (Updated 04/02/21 @ 12:47 by Doug Garcia DO) Chronic left SI joint pain Chronic pain Low back pain Radiculopathy Sacroiliac joint pain Use of opiates for therapeutic purposes Surgical History History of surgery TF DIOGENES #2 Rt L4-5, L5-S1 w/o sed 04/17/202004/13 TF DIOGENES #1 Rt L4-5, L5-S1 w/o sed 03/27/2006/10 TF DIOGENES #2 Rt L4-5, L5-S1 w/o sed 06/02/201705/11 LESI #1 L4-5 w/o sed 05/19/2017 Family History Other No pertinent family history Social History Smoking Status: Former smoker Alcohol Intake Frequency: a few times a week Exam Narrative Narrative: I reviewed the vital signs. Gen -patient is awake and alert and in no acute distress. The patient is well groomed. HEENT -head is atraumatic. There is slight scleral icterus mucous membranes are moist. CV -S1-S2 regular rate and rhythm. Peripheral pulses are palpable. There is no JVD. Resp -breathing is nonlabored. Lungs are clear to auscultation bilaterally. There is no cyanosis. GI - Abdomen is soft and nontender to palpation. There is no guarding or rebound tenderness. Rectal examination was performed with patient's nurse at bedside. There is dark red stool in the rectal vault that is Hemoccult positive. Derm -skin is warm and dry. There is no visible rash. Patient appears quite pale MSK -present extremities are atraumatic. Psych -patient has appropriate affect. The patient does not appear internally stimulated. Neuro -patient answers questions appropriately with fluent speech. Patient moves all present extremities equally. General Limitations: no limitations Course Vital Signs Vital signs: Vital Signs Temperature 96.6 F L 04/02/21 07:20 Pulse Rate 82 04/02/21 07:20 Respiratory Rate 16 04/02/21 07:20 Blood Pressure 157/49 04/02/21 07:20 Pulse Oximetry (%) 99 04/02/21 07:20 Temperature 96.6 F L 04/02/21 07:20 Pulse Rate 72 04/02/21 11:01 Respiratory Rate 24 H 04/02/21 11:01 Blood Pressure 144/44 04/02/21 11:01 Pulse Oximetry (%) 99 04/02/21 11:01 [facility] MDM Narrative Medical decision making narrative: Patient arrives with melena that has progress ed to hematochezia. Vital signs are reassuring but overall the patient appears quite pale and does have ongoing gastrointestinal hemorrhage apparent on rectal examination. Labs are remarkable for anemia and mild hyperkalemia as well as mild renal impairment. Given the ongoing bleeding as well as anemia the patient was given packed red blood cells. His labs are also suggestive of hepatic impairment likely due to alcohol use based on his high AST to ALT ratio. Given this and the possibility of bleeding varices he was given IV Rocephin. I discussed his history examination diagnostic findings with Dr. Paz. He is available for him endoscopy and will see the patient in the hospital. He requests admission to the hospitalist service. I discussed the test results and need for admission and endoscopy with the patient and his son and they are agreeable. He is agreeable with the plan for transfusion I discussed the patient's history examination and diagnostic findings with Dr. Messer, who agrees with the plan of care and accepts admission. He would like the patient given treatment for his mild hyperkalemia. Critical care time I provided 34 minutes of critical care time. This was in addition to any separately billable procedures. The patient was given packed red blood cells du e to his anemia and ongoing bleeding. He was given IV Protonix and Rocephin to treat the causative gastrointestinal bleeding. I arranged for endoscopy to control the patient's hemorrhage.. The patient was closely monitored for response to treatment and stability of vital signs throughout their emergency department stay. Lab Data Lab results reviewed: Yes I reviewed the patient's lab results. Result diagrams: 04/02/21 07:40 Labs: Lab Results 04/02/21 04/02/21 04/02/21 Range/Units 07:40 07:40 07:40 WBC 10.2 (4.5-11.0) K/mcL RBC 1.27 L (4.50-5.90) M/mcL Hgb 5.2 L* (13.5-16.5) g/dL Hct 15.8 L* (41.0-55.0) % POC Hct 15 L* (41-55) % MCV 124.4 H (80.0-100.0) fL MCH 40.9 H (26.0-34.0) pg MCHC 32.9 (31.0-36.0) g/dL RDW 15.5 H (11.5-14.5) % Plt Count 123 L (140-440) K/mcL MPV 11.5 H (7.4-10.4) fL Neut % (Auto) 58.8 (38.0-78.0) % Lymph % (Auto) 18.7 (15.0-49.0) % [place] % (Auto) 20.3 H (1.0-12.0) % Eos % (Auto) 1.4 (0.0-7.0) % Baso % (Auto) 0.8 (0.0-2.0) % Lymph # (Auto) 1.90 (1.50-4.80) K/mcL [place] # (Auto) 2.06 H (0.10-0.90) K/mcL Eos # (Auto) 0.14 (0.00-0.70) K/mcL Baso # (Auto) 0.08 (0.00-0.20) K/mcL Absolute Neutrophils 5.99 (1.80-8.00) K/mcL POC PT 16.3 H (11.9-14.5) sec PT 21.1 H (11.9-14.5) sec POC INR 1.4 H (0.8-1.2) INR 1.7 H (0.9-1.1) POC Sodium 140 (133-145) mEq/L POC Potassium 5.5 H (3.3-5.1) mEql/L POC Chloride 107 (96-108) mEq/L POC Total CO2 19 L (22-30) mmol/L POC BUN 59 H (6-20) mg/dL POC Creatinine 2.2 H (0.6-1.2) mg/dL POC Glucose 106 H (70-105) mg/dL POC WB Ioniz Calcium 1.16 (1.16-1.32) mmEq/L Total Bilirubin 2.1 H (0.1-1.0) mg/dL Direct Bilirubin 1.0 H (<0.3) mg/dL AST 86 H (<40) U/L ALT 25 (<40) U/L Alkaline Phosphatase 109 (39-117) U/L Total Protein 6.1 (5.9-8.4) gm/dL Albumin 3.1 L (3.2-5.2) gm/dL Globulin 3.0 (2.2-3.7) gm/dL ED POC Tests ED POC Tests: KIKI - SARS Antigen Negative Discharge Plan Patient/Caregiver Discharge Instructions Pt seen by SUPERVISOR CHEMICAL/PA only: No Clinical Impression: Acute GI bleeding Patient Disposition: Xfer As Inpt ([facility]) Condition: Fair Follow up with: Unknown,Unknown [Primary Care Provider] - Prescriptions: No Action methocarbamol 750 mg tablet 750 mg PO TID RF: 0 diclofenac sodium [Voltaren Arthritis Pain] 1 % gel 2 g topical QID RF: 0 lidocaine [Salonpas (lidocaine)] 4 % adhesive patch,medicated 1 patch topical QDAY PRNRF: 0 atenolol 25 MG tablet 25 mg PO DAILY RF: 0 multivitamin with iron [Daily Multiple Vitamins/Iron] 1 EACH tablet 1 tab PO DAILY RF: 0 Better Bladder Ultra Blend Bladder Support Formula 50 MCG capsule 2 cap PO DAILY RF: 0
[2021-04-02 08:45] LABS: POC Blood Urea Nitrogen 59 mg/dL (6-20); POC CO2 19 mmol/L (22-30); POC Calcium, Ionized 1.16 mmEq/L (1.16-1.32); POC Chloride 107 mEq/L (96-108); POC Creatinine 2.2 mg/dL (0.6-1.2); POC Glucose, Random 106 mg/dL (70-105); POC Hematocrit 15 % (41-55); POC Potassium 5.5 mEql/L (3.3-5.1); POC Sodium 140 mEq/L (133-145)
[2021-04-02 08:48] LABS: POC INR 1.4 (0.8-1.2); POC Pro Time 16.3 sec (11.9-14.5)
[2021-04-02 09:25] LABS: Basophils # (Auto) 0.08 K/mcL (0.00-0.20); Basophils % (Auto) 0.8 % (0.0-2.0); Eosinophils # (Auto) 0.14 K/mcL (0.00-0.70); Eosinophils % (Auto) 1.4 % (0.0-7.0); Hematocrit 15.8 % (41.0-55.0); Hemoglobin 5.2 g/dL (13.5-16.5); Lymphocytes % (Auto) 18.7 % (15.0-49.0); Mean Cell Volume 124.4 fL (80.0-100.0); Mean Corpuscular HGB Conc 32.9 g/dL (31.0-36.0); Mean Platelet Volume 11.5 fL (7.4-10.4); Monocytes # (Auto) 2.06 K/mcL (0.10-0.90); Monocytes % (Auto) 20.3 % (1.0-12.0); Neutrophils % (Auto) 58.8 % (38.0-78.0); Platelet Count 123 K/mcL (140-440); RBC 1.27 M/mcL (4.50-5.90); Red Cell Distribution Width 15.5 % (11.5-14.5); WBC 10.2 K/mcL (4.5-11.0)
[2021-04-02 09:40] LABS: ALT/SGPT 25 U/L (<40); AST/SGOT 86 U/L (<40); Albumin 3.1 gm/dL (3.2-5.2); Alkaline Phosphatase 109 U/L (39-117); Bilirubin,Total 2.1 mg/dL (0.1-1.0)
[2021-04-02] MEDS ORDERED: cefTRIAXone 1 GM VIAL IV ONE (09:47)
[2021-04-02 09:54] LABS: INR 1.7 (0.9-1.1); Prothrombin Time 21.1 sec (11.9-14.5)
[2021-04-02] MEDS ORDERED: DEXTROSE 50% 50 ML VIAL IV ONE (11:16)
[2021-04-02] MEDS ORDERED: INSULIN REGULAR, HUMAN 1 UNIT/0.01 ML UNIT IV ONE (11:16)
[2021-04-02] MEDS ORDERED: CALCIUM GLUCONATE 7 MEQ in DEXTROSE 5% IN WATER 50 ML IV ONE (11:16)
[2021-04-02] MEDS ORDERED: ALBUTEROL SULFATE 5 MG/ML NEB SOLUTION BOTTLE NEB ONE (11:16)
[2021-04-02] MEDS ORDERED: FUROSEMIDE 40 MG/4 ML VIAL IV ONE (11:16)
--- NOTE | 2021-04-02 11:32 | General Surgery Consult Note ---
HPI Data of Consult Consult date: 04/02/21 Primary Care Provider: Unknown Unknown Consult Narrative Patient Information: Note initiated : 04/02/21 at 11:28 am Service Date, if different from initiated Date: [] Patient: Jose A Zamudio 81 y/o M admitted on for Rectal Bleeding . This is a pleasant 81-year-old gentleman who over the last 3 to 4 days has not been feeling well, he is been feeling weak and afraid to walk outside due to his weakness. He woke up this morning with multiple attacks of melena and blood per rectum. He reports that he has had 2 prior histories of upper GI bleed from gastric ulcers for which he has undergone EGD twice in the past. At this time he denies any abdominal pain, he has no fevers chills nausea or vomiting. 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) Sacroiliac joint pain (Chronic) Radiculopathy (Chronic) Low back pain (Chronic) Chronic pain (Chronic) Chronic left SI joint pain (Chronic) Upper GI hemorrhage (Chronic) Elevated serum creatinine (Chronic) Hyperglycemia (Chronic) Anemia (Chronic) Duodenal ulcer with hemorrhage (Chronic) Medical History Chronic left SI joint pain Chronic pain Low back pain Radiculopathy Sacroiliac joint pain Use of opiates for therapeutic purposes Surgical History History of surgery TF DIOGENES #2 Rt L4-5, L5-S1 w/o sed 04/17/202004/13 TF DIOGENES #1 Rt L4-5, L5-S1 w/o sed 03/27/2006/10 TF DIOGENES #2 Rt L4-5, L5-S1 w/o sed 06/02/201705/11 LESI #1 L4-5 w/o sed 05/19/2017 Family History Other No pertinent family history Social History alcohol intake frequency: a few times a week MEDS/ALLERGIES Home Medications and Allergies Home Medications Medication Instructions Recorded Confirmed Type Better Bladder Ultra Blend Bladder 2 cap PO DAILY 05/29/17 07/06/20 History Support Formula atenolol 25 mg PO DAILY 05/29/17 07/06/20 History multivitamin with iron [Daily 1 tab PO DAILY 05/29/17 07/06/20 History Multiple Vitamins/Iron] diclofenac sodium 1 % topical gel 2 g TOPICAL QID 02/12/21 02/12/21 History lidocaine 4 % topical patch 1 patch TOPICAL QDAY PRN 02/12/21 02/12/21 History methocarbamol 750 mg tablet 750 mg PO TID 02/12/21 02/12/21 History Allergies Allergy/AdvReac Type Severity Reaction Status Date / Time Penicillins Allergy Intermediate Swelling Verified 04/02/21 07:22 oxycodone [Oxycodone] AdvReac Mild Agitated Verified 04/02/21 07:22 Physical Examination Vital Signs Vital signs: Temp Pulse Resp BP Pulse Ox 96.6 F L 73 22 145/45 98 04/02/21 07:20 04/02/21 10:46 04/02/21 10:46 04/02/21 10:46 04/02/21 10:46 General physical appearance General physical exam: well developed, well nourished and no distress Eyes Eye exam: PERRL and normal ocular movement ENT ENT exam: normal pinna, normal nares, normal mucosa, no hearing loss and no congestion Head Head exam IM: Present atraumatic and normocephalic Neck Neck exam: no masses, no bruits, trachea midline, no lymphadenopathy and no venous distension Cardiovascular Cardiovascular exam IM: Present normal rate and rhythm Respiratory Respiratory exam: normal expansion, normal respiratory effort, clear to percussion and clear to auscultation Abdomen Abdomen: Present soft, non tender and bowel sounds Hernia: Present none Genitourinary Genitourinary (Male): Present normal penis with no external lesions Rectum Rectum: Present normal sphincter tone, no hemorrhoids, no tenderness, no masses and no bleeding Integumentary Integumentary: Present no rash, no growths and no abnormal pigmentation Neurologic Neurologic: Present normal coordination and normal sensation Musculoskeletal Musculoskeletal: Present normal gait and normal posture Psychiatric Psychiatric: Present oriented to time, oriented to person, oriented to place, speech is normal and memory intact Results Labs Result diagrams: 04/02/21 07:40 Labs: Abnormal lab results 04/02/21 04/02/21 04/02/21 Range/Units 07:40 07:40 07:40 RBC 1.27 L (4.50-5.90) M/mcL Hgb 5.2 L* (13.5-16.5) g/dL Hct 15.8 L* (41.0-55.0) % POC Hct 15 L* (41-55) % MCV 124.4 H (80.0-100.0) fL MCH 40.9 H (26.0-34.0) pg RDW 15.5 H (11.5-14.5) % Plt Count 123 L (140-440) K/mcL MPV 11.5 H (7.4-10.4) fL [place] % (Auto) 20.3 H (1.0-12.0) % [place] # (Auto) 2.06 H (0.10-0.90) K/mcL POC PT 16.3 H (11.9-14.5) sec PT 21.1 H (11.9-14.5) sec POC INR 1.4 H (0.8-1.2) INR 1.7 H (0.9-1.1) POC Potassium 5.5 H (3.3-5.1) mEql/L POC Total CO2 19 L (22-30) mmol/L POC BUN 59 H (6-20) mg/dL POC Creatinine 2.2 H (0.6-1.2) mg/dL POC Glucose 106 H (70-105) mg/dL Total Bilirubin 2.1 H (0.1-1.0) mg/dL Direct Bilirubin 1.0 H (<0.3) mg/dL AST 86 H (<40) U/L Albumin 3.1 L (3.2-5.2) gm/dL Diabetes panel 04/02/21 Range/Units 07:40 AST 86 H (<40) U/L ALT 25 (<40) U/L Alkaline Phosphatase 109 (39-117) U/L Total Protein 6.1 (5.9-8.4) gm/dL Albumin 3.1 L (3.2-5.2) gm/dL Calcium panel 04/02/21 Range/Units 07:40 Albumin 3.1 L (3.2-5.2) gm/dL Adrenal panel 04/02/21 Range/Units 07:40 Total Bilirubin 2.1 H (0.1-1.0) mg/dL AST 86 H (<40) U/L ALT 25 (<40) U/L Alkaline Phosphatase 109 (39-117) U/L Total Protein 6.1 (5.9-8.4) gm/dL Albumin 3.1 L (3.2-5.2) gm/dL All other labs normal. A/P Assessment and plan (1) Upper GI hemorrhage: Status: Chronic (2) Elevated serum creatinine: Status: Chronic Comment: Cr 1.3 pre-op before knee surgery; no mention of CKD in records (3) Anemia: Status: Chronic Qualifiers: Anemia type: other cause Other causes of anemia: acute posthemorrhagic Qualified Code(s): D62 - Acute posthemorrhagic anemia Narrative A/P Narrative: This is a pleasant 81-year-old gentleman who presents with signs and symptoms most consistent with a upper GI bleed. Past medical history of having duodenal ulcer status post EGD x2. In the emergency room he is hemodynamically stable, however he has an elevated INR and decreased H&H to 5 and 15. Agree with admission to the hospitalist, blood transfusion. I will take him to the Endo suite tomorrow for EGD, possible control of bleed. Thank you very much for this consultation, please call with any questions. Time Spent With Patient Time: Total time spent is greater than 50% in coordination of care (as documented) at patient's floor/unit and/or counseling patient:
--- NOTE | 2021-04-02 11:59 | Internal Med History&Physical ---
HPI History of Present Illness Patient information: Note initiated : 04/02/21 at 11:46 am Service Date, if different from initiated Date: [] Patient: Jose A Zamudio a 81 y/o M admitted on for Rectal Bleeding . Chief Complaint: [upper GI bleeding] History of present illness: Mr. Zamudio is a 81 year old M history of gastric ulcers status post banding, CHF, presenting with 2-day history of black stool followed by max bloody stool. He had a history of gastric ulcers status post banding x2 years ago. He was in his usual state of health until yesterday when he had acute onset of first multiple episode of black stools, followed by flank bloody diarrhea. He is also complaining of mild cramping bilateral lower quadrant abdominal pain. He denies nausea vomiting. He denies chest pain or palpitations. He is complaining of general body weakness. He denies shortness of breath. He denies currently taking any antiplatelet or anticoagulants such as aspirin Plavix or Coumadin. Due to his symptoms, he presented to our ED for evaluations. Vital signs significant for mild tachypnea with rate of breathing in the mid 20s with rest of the vital signs within normal limits. Labs significant for H&H 5.2/15.8 with a baseline of 9.5/28.8. Stool occult blood positive. Serum potassium level 5.5. Serum creatinine level 2.2 with a baseline 1.4. Constitutional Constitutional: Present fatigue and weakness; Absent chills, excessive sweating and fever(s) EENT Eyes: Absent blurry vision, change in vision, loss of vision and other visual disturbances Ears: Absent decreased hearing and tinnitus Nose, mouth and throat: Absent abnormal hearing, dry mouth, headache(s), nasal congestion and sore throat Cardiovascular Cardiovascular: Absent chest pain, chest pain at rest, edema, irregular heart rhythm and palpatations Respiratory Respiratory: Absent cough, dyspnea and wheezing Gastrointestinal Gastrointestinal: Present abdominal pain, diarrhea, hematochezia and melena; Absent constipation, nausea and vomiting Musculoskeletal Musculoskeletal: Absent back pain, deformity, limited range of motion, muscle cramps, muscle weakness and numbness Integumentary Integumentary: Absent lesions, rash and wounds Neurological Neurological: Absent focal weakness, headache(s) and numbness Psychiatric Psychiatric: Absent anxiety, depression and hallucinations PFSH PFSH All Active Problems (Updated 04/02/21 @ 11:53 by Aneesh Messer MD) Transaminitis (Acute) Symptomatic anemia (Acute) Thrombocytopenia (Acute) Coagulopathy (Acute) Hyperkalemia (Acute) Cstze-fn-zafyisg kidney injury (Acute) Chronic CHF (Acute) Head injury (Acute) Elevated troponin (Acute) Acute exacerbation of CHF (congestive heart failure) (Acute) Elevated brain natriuretic peptide (BNP) level (Acute) Bimalleolar ankle fracture (Acute) 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) Sacroiliac joint pain (Chronic) Radiculopathy (Chronic) Low back pain (Chronic) Chronic pain (Chronic) Chronic left SI joint pain (Chronic) Upper GI hemorrhage (Chronic) Elevated serum creatinine (Chronic) Hyperglycemia (Chronic) Anemia (Chronic) Duodenal ulcer with hemorrhage (Chronic) Medical History (Updated 04/02/21 @ 11:53 by Aneesh Messer MD) Chronic left SI joint pain Chronic pain Low back pain Radiculopathy Sacroiliac joint pain Use of opiates for therapeutic purposes Surgical History History of surgery TF DIOGENES #2 Rt L4-5, L5-S1 w/o sed 04/17/202004/13 TF DIOGENES #1 Rt L4-5, L5-S1 w/o sed 03/27/2006/10 TF DIOGENES #2 Rt L4-5, L5-S1 w/o sed 06/02/201705/11 LESI #1 L4-5 w/o sed 05/19/2017 Family History Other No pertinent family history Social History alcohol intake frequency: a few times a week MEDS/ALLERGIES Home Medications and Allergies Home Medications Medication Instructions Recorded Confirmed Type Better Bladder Ultra Blend Bladder 2 cap PO DAILY 05/29/17 07/06/20 History Support Formula atenolol 25 mg PO DAILY 05/29/17 07/06/20 History multivitamin with iron [Daily 1 tab PO DAILY 05/29/17 07/06/20 History Multiple Vitamins/Iron] diclofenac sodium 1 % topical gel 2 g TOPICAL QID 02/12/21 02/12/21 History lidocaine 4 % topical patch 1 patch TOPICAL QDAY PRN 02/12/21 02/12/21 History methocarbamol 750 mg tablet 750 mg PO TID 02/12/21 02/12/21 History Allergies Allergy/AdvReac Type Severity Reaction Status Date / Time Penicillins Allergy Intermediate Swelling Verified 04/02/21 07:22 oxycodone [Oxycodone] AdvReac Mild Agitated Verified 04/02/21 07:22 EXAM Constitutional Vitals: Temp Pulse Resp BP Pulse Ox 35.9 C L 72 24 H 144/44 99 04/02/21 07:20 04/02/21 11:01 04/02/21 11:01 04/02/21 11:01 04/02/21 11:01 General appearance: cooperative and no acute distress Head Head exam: Present atraumatic and normocephalic Eye Eye exam: Present EOMI, PERRL and scleral icterus ENT ENT exam: Present mucous membranes moist, normal exam and normal external ear exam Neck Neck exam: Present normal inspection; Absent lymphadenopathy, tenderness and thyromegaly Respiratory Respiratory exam: Absent accessory muscle use, respiratory distress and wheezes Cardiovascular Cardiovascular exam: Present normal rate and rhythm; Absent JVD GI/Abdominal GI/Abdominal exam: Present normal bowel sounds and soft; Absent organomegaly and tenderness Rectal Rectal exam: Present deferred Extremities Exam Extremities exam: Present full ROM, normal capillary refill and normal inspection; Absent tenderness Neurological Exam Neurological exam: Present alert, CN II-XII intact and oriented X3; Absent motor sensory deficit Psychiatric Psychiatric exam: Present normal affect and normal mood; Absent anxious and depressed Skin Skin exam: Present dry and intact Additional comments: spider angiomata on face DATA Data Completed and Pending Labs: Labs from last 24 hours 04/02/21 04/02/21 04/02/21 07:40 07:40 07:40 WBC 10.2 RBC 1.27 L Hgb 5.2 L* Hct 15.8 L* POC Hct 15 L* MCV 124.4 H MCH 40.9 H MCHC 32.9 RDW 15.5 H Plt Count 123 L MPV 11.5 H Neut % (Auto) 58.8 Lymph % (Auto) 18.7 [place] % (Auto) 20.3 H Eos % (Auto) 1.4 Baso % (Auto) 0.8 Lymph # (Auto) 1.90 [place] # (Auto) 2.06 H Eos # (Auto) 0.14 Baso # (Auto) 0.08 Absolute Neutrophils 5.99 POC PT 16.3 H PT 21.1 H POC INR 1.4 H INR 1.7 H POC Sodium 140 POC Potassium 5.5 H POC Chloride 107 POC Total CO2 19 L POC BUN 59 H POC Creatinine 2.2 H POC Glucose 106 H POC WB Ioniz Calcium 1.16 Total Bilirubin 2.1 H Direct Bilirubin 1.0 H AST 86 H ALT 25 Alkaline Phosphatase 109 Total Protein 6.1 Albumin 3.1 L Globulin 3.0 A/P Assessment and plan (1) Upper GI hemorrhage: Status: Chronic (2) Chronic CHF: Status: Acute (3) [id number] kidney injury: Status: Acute (4) Hyperkalemia: Status: Acute (5) Coagulopathy: Status: Acute (6) Thrombocytopenia: Status: Acute (7) Symptomatic anemia: Status: Acute (8) Transaminitis: Status: Acute Narrative A/P Narrative: Assessment and Plans: 1. Upper GI bleeding, h/o gastric ulcers with associated symptomatic anemia: Admit to inpatient ICU General surgeon Dr. Paz consulted, planned for EGD on 04/03/21 Clear liquid diet, then NPO after midnight Protonix drip H/H q6hr 2 unit pRBC transfusion No any antiplatelet or anticoagulants 2. Hyperkalemia: ECG Lasix IV Dextrose with regular insulin Calcium gluconate Albuterol Repeat BMP in the afternoon to make sure resolution of the hyperkalemia 3. Coagulopathy and thrombocytopenia: Likely secondary to underlying suspected liver disease No any antiplatelet or anticoagulants cbc w/ auto diff in the morning to trend plt count and transfuse platelet if plt count <15 4. h/o CHF: BNP Continue beta nelsy from home regimen 5. Suspected cirrhosis: US abdomen limited to look for signs of cirrhosis 6. Acute on chronic kidney injury: Avoid nephrotoxic agents Blood transfusion as sort of fluid replacement Repeat CMP in the morning to trend kidney functions GI ppx: Protonix drip DVT ppx: SCDs Code status: Full Prognosis: guarded Disposition: inpatient ICU Critical Care Time: 45min Time Spent With Patient Time: Total time spent is greater than 50% in coordination of care (as documented) at patient's floor/unit and/or counseling patient: Total time spent with greater than 50% in coordination of care (as documented) at patient's floor/unit and/or counseling patient:: Greater than 35 minutes
--- NOTE | 2021-04-02 13:06 | Emergency Department Note ---
HPI General Chief complaint: Bleeding Other Stated complaint: rectal bleeding Time Seen by Provider: 04/02/21 07:22 Source: patient Mode of arrival: wheelchair Limitations: no limitations History of Present Illness HPI Narrative: Narrative: Related Data Home Medications Medication Instructions Recorded Confirmed Better Bladder Ultra Blend Bladder 2 cap PO DAILY 05/29/17 07/06/20 Support Formula atenolol 25 mg PO DAILY 05/29/17 07/06/20 multivitamin with iron [Daily 1 tab PO DAILY 05/29/17 07/06/20 Multiple Vitamins/Iron] diclofenac sodium 1 % topical gel 2 g TOPICAL QID 02/12/21 02/12/21 lidocaine 4 % topical patch 1 patch TOPICAL QDAY PRN 02/12/21 02/12/21 methocarbamol 750 mg tablet 750 mg PO TID 02/12/21 02/12/21 Allergies Allergy/AdvReac Type Severity Reaction Status Date / Time Penicillins Allergy Intermediate Swelling Verified 04/02/21 07:22 oxycodone [Oxycodone] AdvReac Mild Agitated Verified 04/02/21 07:22 Review of Systems ROS ROS Narrative: Narrative: PFSH Narrative Patient History Narrative: Narrative: Medical/Surgical/Family History All Active Problems (Updated 04/02/21 @ 12:47 by Doug Garcia DO) Acute GI bleeding (Acute) Transaminitis (Acute) Symptomatic anemia (Acute) Thrombocytopenia (Acute) Coagulopathy (Acute) Hyperkalemia (Acute) Ahdwu-ad-yoovstr kidney injury (Acute) Chronic CHF (Acute) Head injury (Acute) Elevated troponin (Acute) Acute exacerbation of CHF (congestive heart failure) (Acute) Elevated brain natriuretic peptide (BNP) level (Acute) Bimalleolar ankle fracture (Acute) 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) Sacroiliac joint pain (Chronic) Radiculopathy (Chronic) Low back pain (Chronic) Chronic pain (Chronic) Chronic left SI joint pain (Chronic) Upper GI hemorrhage (Chronic) Elevated serum creatinine (Chronic) Hyperglycemia (Chronic) Anemia (Chronic) Duodenal ulcer with hemorrhage (Chronic) Medical History (Updated 04/02/21 @ 12:47 by Doug Garcia DO) Chronic left SI joint pain Chronic pain Low back pain Radiculopathy Sacroiliac joint pain Use of opiates for therapeutic purposes Surgical History History of surgery TF DIOGENES #2 Rt L4-5, L5-S1 w/o sed 04/17/202004/13 TF DIOGENES #1 Rt L4-5, L5-S1 w/o sed 03/27/2006/10 TF DIOGENES #2 Rt L4-5, L5-S1 w/o sed 06/02/201705/11 LESI #1 L4-5 w/o sed 05/19/2017 Family History Other No pertinent family history Social History Smoking Status: Former smoker Alcohol Intake Frequency: a few times a week Exam Narrative Narrative: Narrative: General Limitations: no limitations Course Vital Signs Vital signs: Vital Signs Temperature 96.6 F L 04/02/21 07:20 Pulse Rate 82 04/02/21 07:20 Respiratory Rate 16 04/02/21 07:20 Blood Pressure 157/49 04/02/21 07:20 Pulse Oximetry (%) 99 04/02/21 07:20 Temperature 96.6 F L 04/02/21 07:20 Pulse Rate 77 04/02/21 12:31 Respiratory Rate 23 H 04/02/21 12:31 Blood Pressure 116/51 04/02/21 12:31 Pulse Oximetry (%) 100 04/02/21 12:31 MDM MDM Narrative Medical decision making narrative: Narrative: Lab Data Result diagrams: 04/02/21 07:40 Labs: Lab Results 04/02/21 04/02/21 04/02/21 Range/Units 07:40 07:40 07:40 WBC 10.2 (4.5-11.0) K/mcL RBC 1.27 L (4.50-5.90) M/mcL Hgb 5.2 L* (13.5-16.5) g/dL Hct 15.8 L* (41.0-55.0) % POC Hct 15 L* (41-55) % MCV 124.4 H (80.0-100.0) fL MCH 40.9 H (26.0-34.0) pg MCHC 32.9 (31.0-36.0) g/dL RDW 15.5 H (11.5-14.5) % Plt Count 123 L (140-440) K/mcL MPV 11.5 H (7.4-10.4) fL Neut % (Auto) 58.8 (38.0-78.0) % Lymph % (Auto) 18.7 (15.0-49.0) % [place] % (Auto) 20.3 H (1.0-12.0) % Eos % (Auto) 1.4 (0.0-7.0) % Baso % (Auto) 0.8 (0.0-2.0) % Lymph # (Auto) 1.90 (1.50-4.80) K/mcL [place] # (Auto) 2.06 H (0.10-0.90) K/mcL Eos # (Auto) 0.14 (0.00-0.70) K/mcL Baso # (Auto) 0.08 (0.00-0.20) K/mcL Absolute Neutrophils 5.99 (1.80-8.00) K/mcL POC PT 16.3 H (11.9-14.5) sec PT 21.1 H (11.9-14.5) sec POC INR 1.4 H (0.8-1.2) INR 1.7 H (0.9-1.1) POC Sodium 140 (133-145) mEq/L POC Potassium 5.5 H (3.3-5.1) mEql/L POC Chloride 107 (96-108) mEq/L POC Total CO2 19 L (22-30) mmol/L POC BUN 59 H (6-20) mg/dL POC Creatinine 2.2 H (0.6-1.2) mg/dL POC Glucose 106 H (70-105) mg/dL POC WB Ioniz Calcium 1.16 (1.16-1.32) mmEq/L Total Bilirubin 2.1 H (0.1-1.0) mg/dL Direct Bilirubin 1.0 H (<0.3) mg/dL AST 86 H (<40) U/L ALT 25 (<40) U/L Alkaline Phosphatase 109 (39-117) U/L Total Protein 6.1 (5.9-8.4) gm/dL Albumin 3.1 L (3.2-5.2) gm/dL Globulin 3.0 (2.2-3.7) gm/dL ED POC Tests ED POC Tests: KIKI - SARS Antigen Negative EKG Data EKG #1: EKG attestation: Yes I reviewed and interpreted this EKG. EKG results narrative: EKG performed at 12:48 PM: Sinus rhythm, rate 91. Normal P wave morphology. Incomplete right bundle branch block. There is diffuse ST depression suggestive of myocardial ischemia. Normal T wave morphology. Normal OR QRS and QTc duration. No old EKG immediately available for comparison. EKG was interpreted by me. Discharge Plan Patient/Caregiver Discharge Instructions Pt seen by CANCER REGISTRY MANAGER/PA only: No Clinical Impression: Acute GI bleeding Patient Disposition: Xfer As Inpt ([facility]) Condition: Fair Follow up with: Unknown,Unknown [Primary Care Provider] - Prescriptions: No Action methocarbamol 750 mg tablet 750 mg PO TID RF: 0 diclofenac sodium [Voltaren Arthritis Pain] 1 % gel 2 g topical QID RF: 0 lidocaine [Salonpas (lidocaine)] 4 % adhesive patch,medicated 1 patch topical QDAY PRNRF: 0 atenolol 25 MG tablet 25 mg PO DAILY RF: 0 multivitamin with iron [Daily Multiple Vitamins/Iron] 1 EACH tablet 1 tab PO DAILY RF: 0 Better Bladder Ultra Blend Bladder Support Formula 50 MCG capsule 2 cap PO DAILY RF: 0
[2021-04-02] MEDS ORDERED: ACETAMINOPHEN 325 MG TABLET PO PRN (13:39)
[2021-04-02] MEDS ORDERED: ONDANSETRON 4 MG/2 ML VIAL IV PRN (13:39)
[2021-04-02 15:58] LABS: ALT/SGPT 27 U/L (<40); AST/SGOT 83 U/L (<40); Alkaline Phosphatase 92 U/L (39-117); Blood Urea Nitrogen 57 mg/dL (8-23); Calcium 9.5 mg/dL (8.6-10.4); Carbon Dioxide 18 mmol/L (22-30); Chloride 104 mmol/L (96-108); Globulin 3.1 gm/dL (2.2-3.7); Glomerular Filtration Rate 31; Glucose 111 mg/dL (70-105)
[2021-04-02] MEDS: PANTOPRAZOLE 80 MG in 0.9 % SODIUM CHLORIDE 100 ML IV SCH (16:32)
[2021-04-02] MEDS: 0.9 % SODIUM CHLORIDE 250 ML IV SCH (16:32)
[2021-04-02] MEDS: 0.9 % SODIUM CHLORIDE 10 ML SYRINGE IV SCH ×2 (17:34→20:55)
[2021-04-02 19:07] LABS: Hematocrit 16.8 % (41.0-55.0); Hemoglobin 5.5 g/dL (13.5-16.5)
--- NOTE | 2021-04-02 19:21 | Ultrasound Report ---
INDICATION: look for signs of cirrhosis TECHNIQUE: Grayscale and color flow Doppler spectral imaging COMPARISON: Previous MRI scan dated 06/20/2020. Previous CT scan dated 05/25/2020 FINDINGS: Gallbladder:Multiple gallstones in the dependent portion of the gallbladder. No significant gallbladder wall thickening. No pericholecystic fluid. Common bile duct:No intra or extrahepatic bile duct dilatation.. Common bile duct measures4 mm Liver:Liver is heterogeneous with increased sonographic density. Liver has a nodular contour consistent with cirrhosis. There is no discrete mass.. Liver [id number] cm Portal vein:Normal hepatopedal portal venous flow Pancreas:Poorly visualized Incidental: There is a right pleural effusion. No ascites. IMPRESSION: 1. Technically limited evaluation 2. Findings consistent with cirrhosis. No detectable mass 3. Cholelithiasis Interpreted and Authenticated by: Zachary Richmond 04/02/21
[2021-04-02 22:26] LABS: Hemoglobin 6.5 g/dL (13.5-16.5)
[2021-04-03] MEDS ORDERED: FUROSEMIDE 20 MG/2 ML VIAL IV ONE ×2 (03:30→03:37)
[2021-04-03] MEDS: PANTOPRAZOLE 80 MG in 0.9 % SODIUM CHLORIDE 100 ML IV SCH ×3 (03:38→16:38)
[2021-04-03] MEDS: 0.9 % SODIUM CHLORIDE 250 ML IV SCH ×3 (05:37→23:45)
[2021-04-03] MEDS: 0.9 % SODIUM CHLORIDE 10 ML SYRINGE IV SCH ×3 (06:00→22:23)
[2021-04-03] MEDS ORDERED: MIDAZOLAM 2 MG/2 ML VIAL IV SCH ×2 (07:30→11:49)
[2021-04-03] MEDS ORDERED: PROPOFOL 200 MG/20 ML VIAL IV SCH (07:30)
[2021-04-03 07:39] LABS: ALT/SGPT 23 U/L (<40); AST/SGOT 68 U/L (<40); Albumin 2.8 gm/dL (3.2-5.2); Alkaline Phosphatase 71 U/L (39-117); Bilirubin,Total 3.2 mg/dL (0.1-1.0); Blood Urea Nitrogen 61 mg/dL (8-23); Calcium 9.1 mg/dL (8.6-10.4); Carbon Dioxide 19 mmol/L (22-30); Chloride 107 mmol/L (96-108); Globulin 2.7 gm/dL (2.2-3.7); Glomerular Filtration Rate 27; Glucose 116 mg/dL (70-105)
[2021-04-03] MEDS ORDERED: METHOCARBAMOL 750 MG TABLET PO PRN (08:13)
[2021-04-03] MEDS ORDERED: DICLOFENAC SODIUM 1% TOPICAL PRN ×2 (08:18→11:49)
[2021-04-03 08:20] LABS: Basophils % (Auto) 0.8 % (0.0-2.0); Eosinophils # (Auto) 0.34 K/mcL (0.00-0.70); Eosinophils % (Auto) 4.7 % (0.0-7.0); Lymphocytes # (Auto) 1.93 K/mcL (1.50-4.80); Lymphocytes % (Auto) 26.8 % (15.0-49.0); Mean Cell Volume 106.8 fL (80.0-100.0); Mean Corpuscular HGB Conc 33.3 g/dL (31.0-36.0); Mean Platelet Volume 11.2 fL (7.4-10.4); Monocytes # (Auto) 1.19 K/mcL (0.10-0.90); Monocytes % (Auto) 16.5 % (1.0-12.0); Neutrophils % (Auto) 51.2 % (38.0-78.0); Platelet Count 82 K/mcL (140-440); RBC 1.91 M/mcL (4.50-5.90); Red Cell Distribution Width 25.1 % (11.5-14.5); WBC 7.2 K/mcL (4.5-11.0)
[2021-04-03 08:24] LABS: Basophils # (Auto) 0.06 K/mcL (0.00-0.20)
[2021-04-03] MEDS ORDERED: 0.9 % SODIUM CHLORIDE 250 ML IV SCH (08:30)
--- NOTE | 2021-04-03 08:32 | Internal Med Progress Note ---
SUBJECTIVE Subjective Patient information: Note initiated : 04/03/21 at 8:26 am Service Date, if different from initiated Date: [] Patient: Jose A Zamudio a 81 y/o M admitted on 04/02/21 for Rectal Bleeding . Chief Complaint: [Upper GI bleeding] History of present illness: Mr. Zamudio is a 81 year old M history of gastric ulcers status post banding, CHF, presenting with 2-day history of black stool followed by max bloody stool. He had a history of gastric ulcers status post banding x2 years ago. He was in his usual state of health until yesterday when he had acute onset of first multiple episode of black stools, followed by flank bloody diarrhea. He is also complaining of mild cramping bilateral lower quadrant abdominal pain. He denies nausea vomiting. He denies chest pain or palpitations. He is complaining of general body weakness. He denies shortness of breath. He denies currently taking any antiplatelet or anticoagulants such as aspirin Plavix or Coumadin. Due to his symptoms, he presented to our ED for evaluations. Vital signs significant for mild tachypnea with rate of breathing in the mid 20s with rest of the vital signs within normal limits. Labs significant for H&H 5.2/15.8 with a baseline of 9.5/28.8. Stool occult blood positive. Serum potassium level 5.5. Serum creatinine level 2.2 with a baseline 1.4. 8/10: S/p 3 units of PRBC transfusions and latest hemoglobin level was 6.8. No more reported episode of bloody stool or black stool. No episode of hematemesis. Patient is currently denying any abdominal pain, chest pain, or shortness of breath, or palpitation. EGD by Dr. Paz scheduled to be at 9 AM this morning. Patient has been n.p.o. since midnight. Constitutional Vitals: Vital Signs Temp Pulse Resp BP Pulse Ox 36.8 C 69 13 126/47 97 04/03/21 07:01 04/03/21 07:01 04/03/21 07:01 04/03/21 07:01 04/03/21 07:01 Period Temp Pulse Resp BP Sys/Loving Pulse Ox Last 24 Hr 35.9 C-37.4 C 65-102 13-30 73-155/27-95 84-100 Intake and Output 04/02/21 04/03/21 04/03/21 21:59 05:59 13:59 Intake Total 430 561 Output Total 550 700 150 Balance -120 -139 -150 Weight 99.7 kg Intake & Output: Intake & Output 04/02/21 04/03/21 04/03/21 21:59 05:59 13:59 Intake Total 430 561 Output Total 550 700 150 Balance -120 -139 -150 Weight 99.7 kg Intake: IV 4 295 Sodium Chloride 0.9% 250 ml @ 3 210 20 mls/hr IV .[id number] ANDREW Rx#: [id number] Protonix 80 mg In Sodium 1 85 Chloride 0.9% 100 ml @ 8 MG/HR 10 mls/hr IV Q10H ANDREW Rx#: [id number] Oral 100 0 Blood Product 326 266 Output: Void Amount 550 700 150 Other: Meal Dinner Percent of Meal Consumed 25% Feeding Ability Independent Urine Appearance Clear Clear Urine Color Bright Yellow Bright Yellow Pale Urine Odor Normal General appearance: cooperative and no acute distress Head Head exam: Present atraumatic and normocephalic Eye Eye exam: Present EOMI and PERRL ENT ENT exam: Present mucous membranes moist, normal exam and normal external ear ex am Neck Neck exam: Present normal inspection; Absent lymphadenopathy, tenderness and thyromegaly Respiratory Respiratory exam: Absent accessory muscle use, respiratory distress and wheezes Cardiovascular Cardiovascular exam: Present normal rate and rhythm; Absent JVD GI/Abdominal GI/Abdominal exam: Present normal bowel sounds and soft; Absent organomegaly and tenderness Rectal Rectal exam: Present deferred Extremities Exam Extremities exam: Present full ROM, normal capillary refill and normal inspection; Absent tenderness Neurological Exam Neurological exam: Present alert, CN II-XII intact and oriented X3; Absent motor sensory deficit Psychiatric Psychiatric exam: Present normal affect and normal mood; Absent anxious and depressed Skin Skin exam: Present dry and intact OBJ DATA Labs CBC & Chem 7: 04/03/21 05:08 04/03/21 05:09 Labs: Abnormal Lab Results 04/03/21 04/03/21 04/02/21 05:09 05:08 21:30 RBC 1.91 L Hgb 6.8 L* 6.5 L* Hct 20.4 L* 20.0 L* POC Hct MCV 106.8 H MCH 35.6 H RDW 25.1 H Plt Count 82 L MPV 11.2 H [place] % (Auto) 16.5 H [place] # (Auto) 1.19 H POC PT PT POC INR INR POC Potassium Carbon Dioxide 19 L POC Total CO2 POC BUN BUN 61 H Creatinine 2.2 H POC Creatinine Glucose 116 H POC Glucose Total Bilirubin 3.2 H Direct Bilirubin AST 68 H Total Protein 5.5 L Albumin 2.8 L 04/02/21 04/02/21 04/02/21 15:49 14:15 07:40 RBC Hgb 5.5 L* Hct 16.8 L* POC Hct 15 L* MCV MCH RDW Plt Count MPV [place] % (Auto) [place] # (Auto) POC PT PT POC INR INR POC Potassium 5.5 H Carbon Dioxide 18 L POC Total CO2 19 L POC BUN 59 H BUN 57 H Creatinine 2.0 H POC Creatinine 2.2 H Glucose 111 H POC Glucose 106 H Total Bilirubin 2.0 H 2.1 H Direct Bilirubin 1.0 H AST 83 H 86 H Total Protein Albumin 3.0 L 3.1 L 04/02/21 04/02/21 07:40 07:40 RBC 1.27 L Hgb 5.2 L* Hct 15.8 L* POC Hct MCV 124.4 H MCH 40.9 H RDW 15.5 H Plt Count 123 L MPV 11.5 H [place] % (Auto) 20.3 H [place] # (Auto) 2.06 H POC PT 16.3 H PT 21.1 H POC INR 1.4 H INR 1.7 H POC Potassium Carbon Dioxide POC Total CO2 POC BUN BUN Creatinine POC Creatinine Glucose POC Glucose Total Bilirubin Direct Bilirubin AST Total Protein Albumin Meds: Medications Acetaminophen (Acetaminophen 325 Mg Tablet) 650 mg PO Q4-6HP PRN; Protocol PRN Reason: Per Pain Protocol/Fever > 101 Atenolol (Atenolol 25 Mg Tablet) 25 mg PO DAILY [facility] Ceftriaxone Sodium (Ceftriaxone 1 Gm Vial) 1 gm IV Q24H [facility]; Protocol Pantoprazole Sodium 80 mg/ (Sodium Chloride) 100 mls @ 10 mls/hr IV Q10H [facility] Last Admin: 04/03/21 03:38 Dose: 8 mg/hr, 10 mls/hr Documented by: Sodium Chloride (Sodium Chloride 0.9%) 250 mls @ 20 mls/hr IV .[id number] [facility] Last Admin: 04/03/21 05:37 Dose: 20 mls/hr Documented by: Sodium Chloride (Sodium Chloride 0.9%) 250 mls @ 20 mls/hr IV .[id number] [facility] Stop: 04/03/21 12:14 Last Admin: 04/03/21 01:30 Dose: 20 mls/hr Documented by: Iron Carb/Multivit/[place]/Folic Acid (Multivit,Ther Iron,Ca,Fa & Min 1 Tablet) 1 tab PO DAILY [facility] Methocarbamol (Methocarbamol 750 Mg Tablet) 750 mg PO TID PRN PRN Reason: Pain Midazolam HCl (Midazolam 2 Mg/2 Ml Vial) 0 mg IV ONCE [facility] Stop: 04/03/21 15:16 Non-Formulary Medication (Lidocaine [Salonpas (Lidocaine)]) 1 patch TOPICAL QDAY PRN PRN Reason: Pain Non-Formulary Medication (Better Bladder Ultra Blend Bladder Support Formula) 2 cap PO DAILY [facility] Ondansetron HCl (Ondansetron 4 Mg/2 Ml Vial) 4 mg IV Q4-6HP PRN; Protocol PRN Reason: Nausea And Vomiting Diclofenac Sodium [ Voltaren Arthritis Pain] 1 % Gel 2 dose TOPICAL QIDP PRN PRN Reason: Pain (Scale Score 1-3) Propofol (Propofol 200 Mg/20 Ml Vial) 0 mg IV UD [facility] Stop: 04/03/21 15:16 Sodium Chloride (0.9 % Sodium Chloride 10 Ml Syringe) 10 ml IV Q8 [facility] Last Admin: 04/03/21 06:00 Dose: 10 ml Documented by: A/P Assessment and plan (1) Acute GI bleeding: Status: Acute (2) Thrombocytopenia: Status: Acute (3) Coagulopathy: Status: Acute (4) Edesv-sm-xwweuln kidney injury: Status: Acute (5) Chronic CHF: Status: Acute (6) Anemia: Status: Chronic Qualifiers: Anemia type: other cause Other causes of anemia: acute posthemorrhagic Qualified Code(s): D62 - Acute posthemorrhagic anemia (7) Upper GI hemorrhage: Status: Chronic Narrative A/P Narrative: Assessment and Plans: 1. Upper GI bleeding, h/o gastric ulcers with associated symptomatic anemia: Stays in inpatient ICU General surgeon Dr. Paz consulted, planned for EGD on 04/03/21 NPO Protonix drip H/H q6hr 4th unit pRBC transfusion ordered No any antiplatelet or anticoagulants 2. Hyperkalemia: RESOLVED Serum potassium 4.9 on 04/03/21 ECG Lasix IV Dextrose with regular insulin Calcium gluconate Albuterol Repeat BMP in the afternoon to make sure resolution of the hyperkalemia 3. Coagulopathy and thrombocytopenia: Likely secondary to underlying suspected liver disease No any antiplatelet or anticoagulants cbc w/ auto diff in the morning to trend plt count and transfuse platelet if plt count <15 4. h/o CHF: BNP Continue beta nelsy from home regimen 5. Suspected cirrhosis: US abdomen limited to look for signs of cirrhosis 6. Acute on chronic kidney injury: Avoid nephrotoxic agents Blood transfusion as sort of fluid replacement Repeat CMP in the morning to trend kidney functions GI ppx: Protonix drip DVT ppx: SCDs Code status: Full Prognosis: guarded Disposition: inpatient ICU Critical Care Time: 45min Time Spent With Patient Time: Total time spent is greater than 50% in coordination of care (as documented) at patient's floor/unit and/or counseling patient: Total time spent with greater than 50% in coordination of care (as documented) at patient's floor/unit and/or counseling patient:: Greater than 35 minutes QUALITY VTE Deep Vein Thrombosis/Pulmonary Embolism Present on Admission: No
[2021-04-03] MEDS ORDERED: TAMSULOSIN 0.4 MG CAPSULE PO ONE (08:33)
[2021-04-03] MEDS ORDERED: ATENOLOL 25 MG TABLET PO SCH (09:00)
[2021-04-03] MEDS ORDERED: [UNRECOGNIZED DRUG - OTHER] PO SCH (09:00)
[2021-04-03] MEDS ORDERED: MULTIVIT,THER IRON,CA,FA & MIN 1 TABLET PO SCH (09:00)
[2021-04-03] MEDS ORDERED: cefTRIAXone 1 GM VIAL IV SCH (09:00)
[2021-04-03] MEDS ORDERED: EPINEPHrine 1 MG/ML AMPUL IV ONE (09:32)
--- NOTE | 2021-04-03 09:32 | EGD Procedure Note ---
EGD Procedure Notes Procedure Information Patient information: Note initiated : 04/03/21 at 9:30 am Service Date: 04/02/21 Patient: Jose A Zamudio 81 y/o M admitted on 04/02/21 for Rectal Bleeding . Pre-op diagnosis general: Alcohol abuse, upper GI bleed with history of duodenal ulcer Post-Op Diagnosis general: Duodenal ulcer, diffuse gastritis Procedure: EGD with control of bleed Procedure Narrative: After risk benefits and alternatives to the procedure were discussed with the patient at length he verbalized understanding and desire to continue with the procedure. Patient was taken to endoscopy. Surgical timeout was taken to verify patient and procedure being performed sedation was administered with 2 mg of Versed and 260 mcg of propofol. An adult gastroscope was entered and advanced under direct vision into the second portion of the duodenum. The antrum was fully inspected, the scope was retroflexed in the stomach. Full examination revealed diffuse gastritis, duodenal bulb ulcer with adherent clot, the ulcer was injected with epinephrine. The GE junction was at 40 cm and the esophagus was normal on full exam. Patient tolerated procedure well. Assessment: Duodenal ulcer, adherent clot, ulcer injected with epinephrine. We will need to repeat EGD in 6 weeks to document healing. Clear to advance diet as tolerated, recommend continuing with Protonix and outpatient acid suppression. Image EGD: 1. Full exam 2. Duodenal ulcer 3. Diffuse gastritis
[2021-04-03] MEDS ORDERED: EPINEPHrine 1 MG/ML AMPUL IJ ONE (09:34)
--- NOTE | 2021-04-03 09:45 | EKG ---
[facility] Test Date: 2021-04-02 Pat Name: Jose A Zamudio Department: ED Room: Gender: Male Electronic Imager: nichloas : [id number] Requested By: Doug Garcia Order Number: [id number] Reading MD: Aric Brennan M.D. Measurements Intervals [place] Rate: 91 P: 75 WA: 180 QRS: 54 QRSD: 118 T: 46 QT: 391 QTc: 482 Interpretive Statements Sinus rhythm Incomplete right bundle branch block ST depr, consider ischemia, anterior leads NO PRIOR TRACING FOR COMPARISON ABNORMAL ECG Electronically Signed On 04-03-2021 9:44:55 PDT by Aric Brennan M.D. /store/[email or web address]/[id number]
[2021-04-03] MEDS ORDERED: EPINEPHrine 1 MG/ML AMPUL ONE (09:47)
[2021-04-03] MEDS ORDERED: LIDOCAINE PATCH TOPICAL SCH (10:00)
[2021-04-03] MEDS ORDERED: ACETAMINOPHEN 325 MG TABLET PO PRN (11:49)
[2021-04-03] MEDS ORDERED: ONDANSETRON 4 MG/2 ML VIAL IV PRN (11:49)
[2021-04-03] MEDS ORDERED: PANTOPRAZOLE 80 MG in 0.9 % SODIUM CHLORIDE 100 ML IV SCH (14:00)
[2021-04-03 16:04] LABS: Hemoglobin 7.6 g/dL (13.5-16.5)
[2021-04-03] MEDS ORDERED: TAMSULOSIN 0.4 MG CAPSULE PO SCH (21:00)
[2021-04-03] MEDS: METHOCARBAMOL 750 MG TABLET PO PRN ×2 (22:20→22:22)
[2021-04-03] MEDS: ETHYL ALCOHOL 30 ML ORAL.SOL PO PRN (22:20)
[2021-04-04] MEDS: 0.9 % SODIUM CHLORIDE 10 ML SYRINGE IV SCH ×4 (05:15→21:26)
[2021-04-04 07:18] LABS: ALT/SGPT 26 U/L (<40); AST/SGOT 78 U/L (<40); Albumin 3.1 gm/dL (3.2-5.2); Albumin/Globulin Ratio 1.1 (1.0-2.3); Alkaline Phosphatase 82 U/L (39-117); Blood Urea Nitrogen 61 mg/dL (8-23); Calcium 9.2 mg/dL (8.6-10.4); Carbon Dioxide 21 mmol/L (22-30); Chloride 107 mmol/L (96-108); Globulin 2.9 gm/dL (2.2-3.7); Glomerular Filtration Rate 25; Glucose 117 mg/dL (70-105)
[2021-04-04 07:19] LABS: Basophils # (Auto) 0.08 K/mcL (0.00-0.20); Basophils % (Auto) 1.2 % (0.0-2.0); Eosinophils # (Auto) 0.51 K/mcL (0.00-0.70); Eosinophils % (Auto) 7.4 % (0.0-7.0); Hematocrit 22.6 % (41.0-55.0); Hemoglobin 7.4 g/dL (13.5-16.5); Lymphocytes # (Auto) 1.87 K/mcL (1.50-4.80); Lymphocytes % (Auto) 27.2 % (15.0-49.0); Mean Cell Volume 104.6 fL (80.0-100.0); Mean Corpuscular HGB Conc 32.7 g/dL (31.0-36.0); Mean Platelet Volume 11.8 fL (7.4-10.4); Monocytes # (Auto) 1.11 K/mcL (0.10-0.90); Monocytes % (Auto) 16.2 % (1.0-12.0); Platelet Count 80 K/mcL (140-440); RBC 2.16 M/mcL (4.50-5.90); Red Cell Distribution Width 24.2 % (11.5-14.5); WBC 6.9 K/mcL (4.5-11.0)
[2021-04-04] MEDS: PANTOPRAZOLE 80 MG in 0.9 % SODIUM CHLORIDE 100 ML IV SCH (08:31)
[2021-04-04] MEDS: cefTRIAXone 1 GM VIAL IV SCH (09:05)
[2021-04-04] MEDS: MULTIVIT,THER IRON,CA,FA & MIN 1 TABLET PO SCH (09:05)
[2021-04-04] MEDS: METHOCARBAMOL 750 MG TABLET PO PRN ×2 (09:05→22:42)
[2021-04-04] MEDS: [UNRECOGNIZED DRUG - OTHER] PO SCH ×2 (09:06→11:25)
[2021-04-04] MEDS: LIDOCAINE PATCH TOPICAL SCH (09:06)
[2021-04-04] MEDS: ETHYL ALCOHOL 30 ML ORAL.SOL PO PRN ×3 (09:15→19:40)
[2021-04-04] MEDS: TAMSULOSIN 0.4 MG CAPSULE PO SCH (11:22)
[2021-04-04] MEDS: ATENOLOL 25 MG TABLET PO SCH (11:22)
--- NOTE | 2021-04-04 13:28 | Internal Med Progress Note ---
SUBJECTIVE Subjective Patient information: Note initiated : 04/04/21 at 1:22 pm Service Date, if different from initiated Date: [] Patient: Jose A Zamudio a 81 y/o M admitted on 04/02/21 for Rectal Bleeding . Chief Complaint: [upper GI bleeding] History of present illness: Mr. Zamudio is a 81 year old M history of gastric ulcers status post banding, CHF, presenting with 2-day history of black stool followed by max bloody stool. He had a history of gastric ulcers status post banding x2 years ago. He was in his usual state of health until yesterday when he had acute onset of first multiple episode of black stools, followed by flank bloody diarrhea. He is also complaining of mild cramping bilateral lower quadrant abdominal pain. He denies nausea vomiting. He denies chest pain or palpitations. He is complaining of general body weakness. He denies shortness of breath. He denies currently taking any antiplatelet or anticoagulants such as aspirin Plavix or Coumadin. Due to his symptoms, he presented to our ED for evaluations. Vital signs significant for mild tachypnea with rate of breathing in the mid 20s with rest of the vital signs within normal limits. Labs significant for H&H 5.2/15.8 with a baseline of 9.5/28.8. Stool occult blood positive. Serum potassium level 5.5. Serum creatinine level 2.2 with a baseline 1.4. 04/03: S/p 3 units of PRBC transfusions and latest hemoglobin level was 6.8. No more reported episode of bloody stool or black stool. No episode of hematemesis. Patient is currently denying any abdominal pain, chest pain, or shortness of breath, or palpitation. EGD by Dr. Paz scheduled to be at 9 AM this morning. Patient has been n.p.o. since midnight. 04/04: had 3 black bowel movements since this morning. No bloody stool. No hematemesis. Hemogolbin stabilzied at around 7.4. Denies abdominal pain. Denies lightheadedness or dizziness. Constitutional Vitals: Vital Signs Temp Pulse Resp BP Pulse Ox 36.7 C 65 25 H 125/42 94 04/04/21 12:01 04/04/21 12:04/04/21 12:04/04/21 12:04/04/21 12:01 Period Temp Pulse Resp BP Sys/Loving Pulse Ox Last 24 Hr 36.5 C-36.9 C 59-71 16-30 81-133/37-60 87-100 Intake and Output 04/03/21 04/04/21 04/04/21 21:59 05:59 13:59 Intake Total 1731 656 856 Output Total 725 200 400 Balance 1006 456 456 Weight 100.38 kg Intake & Output: Intake & Output 04/03/21 04/04/21 04/04/21 21:59 05:59 13:59 Intake Total 1731 656 856 Output Total 725 200 400 Balance 1006 456 456 Weight 100.38 kg Intake: Nourishment/Supplement quantity 240 (ml) IV 351 276 176 Sodium Chloride 0.9% 250 ml @ 306 184 176 20 mls/hr IV .[id number] ANDREW Rx#: [id number] Protonix 80 mg In Sodium 45 92 Chloride 0.9% 100 ml @ 8 MG/HR 10 mls/hr IV Q10H ANDREW Rx#: [id number] Oral 1380 380 440 Output: Void Amount 725 200 400 Other: Meal Dinner Lunch Percent of Meal Consumed 100% 100% Feeding Ability Independent Independent Nourishment/Supplement name Ensure Urine Appearance Clear Clear Clear Urine Color Dark Yellow Dark Yellow Bright Yellow Urine Odor Normal Normal Stool Size Small Stool Color Brown Stool Consistency Soft Loose # Bowel Movements 1 General appearance: cooperative and no acute distress Head Head exam: Present atraumatic and normocephalic Eye Eye exam: Present EOMI, PERRL and scleral icterus ENT ENT exam: Present mucous membranes moist, normal exam and normal external ear exam Neck Neck exam: Present normal inspection; Absent lymphadenopathy, tenderness and thyromegaly Respiratory Respiratory exam: Absent accessory muscle use, respiratory distress and wheezes Cardiovascular Cardiovascular exam: Present normal rate and rhythm; Absent JVD GI/Abdominal GI/Abdominal exam: Present normal bowel sounds and soft; Absent organomegaly and tenderness Rectal Rectal exam: Present deferred Extremities Exam Extremities exam: Present full ROM, normal capillary refill and normal inspection; Absent tenderness Neurological Exam Neurological exam: Present alert, CN II-XII intact and oriented X3; Absent motor sensory deficit Psychiatric Psychiatric exam: Present normal affect and normal mood; Absent anxious and depressed Skin Skin exam: Present dry and intact Additional comments: Pale and jaundiced Spider angiomata on face and chest wall OBJ DATA Labs CBC & Chem 7: 04/04/21 05:07 04/04/21 05:07 Labs: Abnormal Lab Results 04/04/21 04/04/21 04/03/21 05:07 05:07 12:52 RBC 2.16 L Hgb 7.4 L 7.6 L Hct 22.6 L 22.0 L POC Hct MCV 104.6 H MCH 34.3 H RDW 24.2 H Plt Count 80 L MPV 11.8 H [place] % (Auto) 16.2 H Eos % (Auto) 7.4 H [place] # (Auto) 1.11 H POC PT PT POC INR INR POC Potassium Carbon Dioxide 21 L POC Total CO2 POC BUN BUN 61 H Creatinine 2.4 H POC Creatinine Glucose 117 H POC Glucose Total Bilirubin 3.0 H Direct Bilirubin AST 78 H Total Protein Albumin 3.1 L 04/03/21 04/03/21 04/02/21 05:09 05:08 21:30 RBC 1.91 L Hgb 6.8 L* 6.5 L* Hct 20.4 L* 20.0 L* POC Hct MCV 106.8 H MCH 35.6 H RDW 25.1 H Plt Count 82 L MPV 11.2 H [place] % (Auto) 16.5 H Eos % (Auto) [place] # (Auto) 1.19 H POC PT PT POC INR INR POC Potassium Carbon Dioxide 19 L POC Total CO2 POC BUN BUN 61 H Creatinine 2.2 H POC Creatinine Glucose 116 H POC Glucose Total Bilirubin 3.2 H Direct Bilirubin AST 68 H Total Protein 5.5 L Albumin 2.8 L 04/02/21 04/02/21 04/02/21 15:49 14:15 07:40 RBC Hgb 5.5 L* Hct 16.8 L* POC Hct 15 L* MCV MCH RDW Plt Count MPV [place] % (Auto) Eos % (Auto) [place] # (Auto) POC PT PT POC INR INR POC Potassium 5.5 H Carbon Dioxide 18 L POC Total CO2 19 L POC BUN 59 H BUN 57 H Creatinine 2.0 H POC Creatinine 2.2 H Glucose 111 H POC Glucose 106 H Total Bilirubin 2.0 H 2.1 H Direct Bilirubin 1.0 H AST 83 H 86 H Total Protein Albumin 3.0 L 3.1 L 04/02/21 04/02/21 07:40 07:40 RBC 1.27 L Hgb 5.2 L* Hct 15.8 L* POC Hct MCV 124.4 H MCH 40.9 H RDW 15.5 H Plt Count 123 L MPV 11.5 H [place] % (Auto) 20.3 H Eos % (Auto) [place] # (Auto) 2.06 H POC PT 16.3 H PT 21.1 H POC INR 1.4 H INR 1.7 H POC Potassium Carbon Dioxide POC Total CO2 POC BUN BUN Creatinine POC Creatinine Glucose POC Glucose Total Bilirubin Direct Bilirubin AST Total Protein Albumin Meds: Medications Acetaminophen (Acetaminophen 325 Mg Tablet) 650 mg PO Q4-6HP PRN; Protocol PRN Reason: Per Pain Protocol/Fever > 101 Alcohol (Ethyl Alcohol 30 Ml Oral.Ruth) 60 ml PO TID PRN PRN Reason: Alcohol Withdrawal Last Admin: 04/04/21 09:15 Dose: 60 ml Documented by: Atenolol (Atenolol 25 Mg Tablet) 25 mg PO DAILY [facility] Last Admin: 04/04/21 11:22 Dose: 25 mg Documented by: Ceftriaxone Sodium (Ceftriaxone 1 Gm Vial) 1 gm IV Q24H [facility]; Protocol Last Admin: 04/04/21 09:05 Dose: 1 gm Documented by: Iron Carb/Multivit/Care Advocate/Folic Acid (Multivit,Ther Iron,Ca,Fa & Min 1 Tablet) 1 tab PO DAILY [facility] Last Admin: 04/04/21 09:05 Dose: 1 tab Documented by: Lidocaine (Lidocaine Patch) 1 patch TOPICAL DAILY@1000 [facility] Last Admin: 04/04/21 09:06 Dose: 1 patch Documented by: Methocarbamol (Methocarbamol 750 Mg Tablet) 750 mg PO TID PRN PRN Reason: Pain Last Admin: 04/04/21 09:05 Dose: 750 mg Documented by: Ondansetron HCl (Ondansetron 4 Mg/2 Ml Vial) 4 mg IV Q4-6HP PRN; Protocol PRN Reason: Nausea And Vomiting Pantoprazole Sodium (Pantoprazole 40 Mg Tablet) 40 mg PO BIDAC [facility] Super Beta Prostate (Advanced Capsule) 2 dose PO DAILY [facility] Last Admin: 04/04/21 11:25 Dose: 2 dose Documented by: Diclofenac Sodium [ Voltaren Arthritis Pain] 1 % Gel 2 dose TOPICAL QIDP PRN PRN Reason: Pain (Scale Score 1-3) Sodium Chloride (0.9 % Sodium Chloride 10 Ml Syringe) 10 ml IV Q8 [facility] Last Admin: 04/04/21 09:06 Dose: 10 ml Documented by: Tamsulosin HCl (Tamsulosin 0.4 Mg Capsule) 0.4 mg PO DAILY [facility] Last Admin: 04/04/21 11:22 Dose: 0.4 mg Documented by: A/P Assessment and plan (1) Acute GI bleeding: Status: Acute (2) Thrombocytopenia: Status: Acute (3) Coagulopathy: Status: Acute (4) [id number] kidney injury: Status: Acute (5) Chronic CHF: Status: Acute (6) Anemia: Status: Chronic Qualifiers: Anemia type: other cause Other causes of anemia: acute posthemorrhagic Qualified Code(s): D62 - Acute posthemorrhagic anemia (7) Upper GI hemorrhage: Status: Chronic Narrative A/P Narrative: Assessment and Plans: 1. Upper GI bleeding, h/o gastric ulcers with associated symptomatic anemia: s/p EGD with banding of duodenal ulcer Stays in inpatient PCU Full liquid diet Protonix PO BID No any antiplatelet or anticoagulants 2. Hyperkalemia: RESOLVED Serum potassium 4.6 on 04/04/21 ECG Lasix IV Dextrose with regular insulin Calcium gluconate Albuterol Repeat BMP in the afternoon to make sure resolution of the hyperkalemia 3. Coagulopathy and thrombocytopenia: Likely secondary to underlying suspected liver disease No any antiplatelet or anticoagulants cbc w/ auto diff in the morning to trend plt count and transfuse platelet if plt count <15 4. h/o CHF: BNP Continue beta nelsy from home regimen 5. Suspected cirrhosis: US abdomen limited to look for signs of cirrhosis--->finding consistent with presence of cirrhosis, also cholelithiasis 6. Acute on chronic kidney injury: Avoid nephrotoxic agents Blood transfusion as sort of fluid replacement Repeat CMP in the morning to trend kidney functions GI ppx: Protonix PO BID DVT ppx: SCDs Code status: Full Prognosis: guarded Disposition: inpatient PCU Time Spent With Patient Time: Total time spent is greater than 50% in coordination of care (as documented) at patient's floor/unit and/or counseling patient: QUALITY VTE Deep Vein Thrombosis/Pulmonary Embolism Present on Admission: No
[2021-04-04] MEDS: PANTOPRAZOLE 40 MG TABLET PO SCH (16:46)
[2021-04-04] MEDS ORDERED: TAMSULOSIN 0.4 MG CAPSULE PO SCH (21:00)
[2021-04-05] MEDS: ETHYL ALCOHOL 30 ML ORAL.SOL PO PRN (00:49)
[2021-04-05] MEDS: 0.9 % SODIUM CHLORIDE 10 ML SYRINGE IV SCH (05:09)
[2021-04-05 06:49] LABS: Basophils # (Auto) 0.07 K/mcL (0.00-0.20); Basophils % (Auto) 1.1 % (0.0-2.0); Eosinophils # (Auto) 0.47 K/mcL (0.00-0.70); Eosinophils % (Auto) 7.6 % (0.0-7.0); Hematocrit 23.7 % (41.0-55.0); Hemoglobin 7.4 g/dL (13.5-16.5); Lymphocytes # (Auto) 1.73 K/mcL (1.50-4.80); Lymphocytes % (Auto) 28.1 % (15.0-49.0); Mean Cell Volume 110.7 fL (80.0-100.0); Mean Corpuscular HGB Conc 31.2 g/dL (31.0-36.0); Mean Platelet Volume 11.8 fL (7.4-10.4); Monocytes # (Auto) 0.98 K/mcL (0.10-0.90); Monocytes % (Auto) 15.9 % (1.0-12.0); Neutrophils % (Auto) 47.3 % (38.0-78.0); Platelet Count 79 K/mcL (140-440); RBC 2.14 M/mcL (4.50-5.90); Red Cell Distribution Width 24.3 % (11.5-14.5); WBC 6.2 K/mcL (4.5-11.0)
[2021-04-05 07:19] LABS: Hematocrit 20.4 % (41.0-55.0); Hemoglobin 6.8 g/dL (13.5-16.5)
[2021-04-05 07:22] LABS: ALT/SGPT 29 U/L (<40); AST/SGOT 88 U/L (<40); Albumin 3.2 gm/dL (3.2-5.2); Albumin/Globulin Ratio 1.1 (1.0-2.3); Alkaline Phosphatase 93 U/L (39-117); Bilirubin,Total 1.9 mg/dL (0.1-1.0); Blood Urea Nitrogen 57 mg/dL (8-23); Carbon Dioxide 22 mmol/L (22-30); Chloride 106 mmol/L (96-108); Glomerular Filtration Rate 24; Glucose 123 mg/dL (70-105)
[2021-04-05] MEDS: PANTOPRAZOLE 40 MG TABLET PO SCH (08:33)
[2021-04-05] MEDS: [UNRECOGNIZED DRUG - OTHER] PO SCH (08:56)
[2021-04-05] MEDS: ATENOLOL 25 MG TABLET PO SCH ×2 (08:56→10:41)
[2021-04-05] MEDS: TAMSULOSIN 0.4 MG CAPSULE PO SCH (08:56)
[2021-04-05] MEDS: MULTIVIT,THER IRON,CA,FA & MIN 1 TABLET PO SCH (08:56)
--- NOTE | 2021-04-05 08:58 | Internal Med Progress Note ---
SUBJECTIVE Subjective Patient information: Note initiated : 04/05/21 at 8:54 am Service Date, if different from initiated Date: [] Patient: Jose A Zamudio a 81 y/o M admitted on 04/02/21 for Rectal Bleeding . Chief Complaint: [Upper GI bleeding] History of present illness: Mr. Zamudio is a 81 year old M history of gastric ulcers status post banding, CHF, presenting with 2-day history of black stool followed by max bloody stool. He had a history of gastric ulcers status post banding x2 years ago. He was in his usual state of health until yesterday when he had acute onset of first multiple episode of black stools, followed by flank bloody diarrhea. He is also complaining of mild cramping bilateral lower quadrant abdominal pain. He denies nausea vomiting. He denies chest pain or palpitations. He is complaining of general body weakness. He denies shortness of breath. He denies currently taking any antiplatelet or anticoagulants such as aspirin Plavix or Coumadin. Due to his symptoms, he presented to our ED for evaluations. Vital signs significant for mild tachypnea with rate of breathing in the mid 20s with rest of the vital signs within normal limits. Labs significant for H&H 5.2/15.8 with a baseline of 9.5/28.8. Stool occult blood positive. Serum potassium level 5.5. Serum creatinine level 2.2 with a baseline 1.4. 04/03: S/p 3 units of PRBC transfusions and latest hemoglobin level was 6.8. No more reported episode of bloody stool or black stool. No episode of hematemesis. Patient is currently denying any abdominal pain, chest pain, or shortness of breath, or palpitation. EGD by Dr. Paz scheduled to be at 9 AM this morning. Patient has been n.p.o. since midnight. 04/04: had 3 black bowel movements since this morning. No bloody stool. No hematemesis. Hemogolbin stabilzied at around 7.4. Denies abdominal pain. Denies lightheadedness or dizziness. 04/05: No bowel movement overnight. H/H stable this morning. Denies abdominal pain. Denies hematemesis. Denies SOB. Denies lightheadedness. Constitutional Vitals: Vital Signs Temp Pulse Resp BP Pulse Ox 36.9 C 57 L 21 107/42 89 L 08/12/21 07:50 04/05/21 07:50 04/05/21 07:50 04/05/21 06:01 04/05/21 07:50 Period Temp Pulse Resp BP Sys/Loving Pulse Ox Last 24 Hr 36.3 C-36.9 C 57-66 17-25 102-136/42-60 86-97 Intake and Output 04/04/21 04/05/21 04/05/21 21:59 05:59 13:59 Intake Total 300 340 Output Total 300 350 100 Balance 0 -10 -100 Weight 96.978 kg Intake & Output: Intake & Output 04/04/21 04/05/21 04/05/21 21:59 05:59 13:59 Intake Total 300 340 Output Total 300 350 100 Balance 0 -10 -100 Weight 96.978 kg Intake: Oral 300 340 Output: Void Amount 300 350 100 Other: Urine Appearance Clear Clear Clear Urine Color Dark Yellow Bright Yellow Straw Urine Odor Normal Normal General appearance: cooperative and no acute distress Head Head exam: Present atraumatic and normocephalic Eye Eye exam: Present EOMI and PERRL ENT ENT exam: Present mucous membranes moist, normal exam and normal external ear exam Neck Neck exam: Present normal inspection; Absent lymphadenopathy, tenderness and thyromegaly Respiratory Respiratory exam: Absent accessory muscle use, respiratory distress and wheezes Cardiovascular Cardiovascular exam: Present normal rate and rhythm; Absent JVD GI/Abdominal GI/Abdominal exam: Present normal bowel sounds and soft; Absent organomegaly and tenderness Rectal Rectal exam: Present deferred Extremities Exam Extremities exam: Present full ROM, normal capillary refill and normal inspection; Absent tenderness Neurological Exam Neurological exam: Present alert, CN II-XII intact and oriented X3; Absent motor sensory deficit Psychiatric Psychiatric exam: Present normal affect and normal mood; Absent anxious and depressed Skin Skin exam: Present dry and intact OBJ DATA Labs CBC & Chem 7: 04/05/21 05:40 04/05/21 05:40 Labs: Abnormal Lab Results 04/05/21 04/05/21 04/04/21 05:40 05:40 05:07 RBC 2.14 L Hgb 7.4 L Hct 23.7 L MCV 110.7 H MCH 34.6 H RDW 24.3 H Plt Count 79 L MPV 11.8 H Mcm[place] % (Auto) 15.9 H Eos % (Auto) 7.6 H Mcm[place] # (Auto) 0.98 H PT INR Carbon Dioxide 21 L BUN 57 H 61 H Creatinine 2.5 H 2.4 H Glucose 123 H 117 H Total Bilirubin 1.9 H 3.0 H Direct Bilirubin AST 88 H 78 H Total Protein Albumin 3.1 L 04/04/21 04/03/21 04/03/21 05:07 12:52 05:09 RBC 2.16 L Hgb 7.4 L 7.6 L Hct 22.6 L 22.0 L MCV 104.6 H MCH 34.3 H RDW 24.2 H Plt Count 80 L MPV 11.8 H [place] % (Auto) 16.2 H Eos % (Auto) 7.4 H Mcmullen # (Auto) 1.11 H PT INR Carbon Dioxide 19 L BUN 61 H Creatinine 2.2 H Glucose 116 H Total Bilirubin 3.2 H Direct Bilirubin AST 68 H Total Protein 5.5 L Albumin 2.8 L 04/03/21 04/02/21 04/02/21 05:08 21:30 15:49 RBC 1.91 L Hgb 6.8 L* 6.5 L* 5.5 L* Hct 20.4 L* 20.0 L* 16.8 L* MCV 106.8 H MCH 35.6 H RDW 25.1 H Plt Count 82 L MPV 11.2 H Mcmullen % (Auto) 16.5 H Eos % (Auto) Mcmullen # (Auto) 1.19 H PT INR Carbon Dioxide BUN Creatinine Glucose Total Bilirubin Direct Bilirubin AST Total Protein Albumin 04/02/21 04/02/21 04/02/21 14:15 07:40 07:40 RBC Hgb Hct MCV MCH RDW Plt Count MPV [place] % (Auto) Eos % (Auto) Mcmullen # (Auto) PT 21.1 H INR 1.7 H Carbon Dioxide 18 L BUN 57 H Creatinine 2.0 H Glucose 111 H Total Bilirubin 2.0 H 2.1 H Direct Bilirubin 1.0 H AST 83 H 86 H Total Protein Albumin 3.0 L 3.1 L 04/02/21 07:40 RBC 1.27 L Hgb 5.2 L* Hct 15.8 L* MCV 124.4 H MCH 40.9 H RDW 15.5 H Plt Count 123 L MPV 11.5 H [place] % (Auto) 20.3 H Eos % (Auto) Mcmullen # (Auto) 2.06 H PT INR Carbon Dioxide BUN Creatinine Glucose Total Bilirubin Direct Bilirubin AST Total Protein Albumin Meds: Medications Acetaminophen (Acetaminophen 325 Mg Tablet) 650 mg PO Q4-6HP PRN; Protocol PRN Reason: Per Pain Protocol/Fever > 101 Alcohol (Ethyl Alcohol 30 Ml Oral.Ruth) 60 ml PO TID PRN PRN Reason: Alcohol Withdrawal Last Admin: 04/05/21 00:49 Dose: 60 ml Documented by: Atenolol (Atenolol 25 Mg Tablet) 25 mg PO DAILY [facility] Last Admin: 04/04/21 11:22 Dose: 25 mg Documented by: Ceftriaxone Sodium (Ceftriaxone 1 Gm Vial) 1 gm IV Q24H [facility]; Protocol Last Admin: 04/04/21 09:05 Dose: 1 gm Documented by: Iron Carb/Multivit/Rental Representative/Folic Acid (Multivit,Ther Iron,Ca,Fa & Min 1 Tablet) 1 tab PO DAILY [facility] Last Admin: 04/04/21 09:05 Dose: 1 tab Documented by: Lidocaine (Lidocaine Patch) 1 patch TOPICAL DAILY@1000 [facility] Last Admin: 04/04/21 09:06 Dose: 1 patch Documented by: Methocarbamol (Methocarbamol 750 Mg Tablet) 750 mg PO TID PRN PRN Reason: Pain Last Admin: 04/04/21 22:42 Dose: 750 mg Documented by: Ondansetron HCl (Ondansetron 4 Mg/2 Ml Vial) 4 mg IV Q4-6HP PRN; Protocol PRN Reason: Nausea And Vomiting Pantoprazole Sodium (Pantoprazole 40 Mg Tablet) 40 mg PO BIDAC [facility] Last Admin: 04/05/21 08:33 Dose: 40 mg Documented by: Super Beta Prostate (Advanced Capsule) 2 dose PO DAILY [facility] Last Admin: 04/04/21 11:25 Dose: 2 dose Documented by: Diclofenac Sodium [ Voltaren Arthritis Pain] 1 % Gel 2 dose TOPICAL QIDP PRN PRN Reason: Pain (Scale Score 1-3) Sodium Chloride (0.9 % Sodium Chloride 10 Ml Syringe) 10 ml IV Q8 [facility] Last Admin: 04/05/21 05:09 Dose: 10 ml Documented by: Tamsulosin HCl (Tamsulosin 0.4 Mg Capsule) 0.4 mg PO DAILY [facility] Last Admin: 04/04/21 11:22 Dose: 0.4 mg Documented by: A/P Assessment and plan (1) Acute GI bleeding: Status: Acute (2) Thrombocytopenia: Status: Acute (3) Coagulopathy: Status: Acute (4) [place]-cy-pajolgw kidney injury: Status: Acute (5) Chronic CHF: Status: Acute (6) Anemia: Status: Chronic Qualifiers: Anemia type: other cause Other causes of anemia: acute posthemorrhagic Qualified Code(s): D62 - Acute posthemorrhagic anemia (7) Upper GI hemorrhage: Status: Chronic Narrative A/P Narrative: Assessment and Plans: 1. Upper GI bleeding, h/o gastric ulcers with associated symptomatic anemia: s/p EGD with banding of duodenal ulcer Stays in inpatient PCU Full liquid diet Protonix PO BID No any antiplatelet or anticoagulants 2. Hyperkalemia: RESOLVED Serum potassium 4.6 on 04/04/21 3. Coagulopathy and thrombocytopenia: Likely secondary to underlying suspected liver disease No any antiplatelet or anticoagulants cbc w/ auto diff in the morning to trend plt count and transfuse platelet if plt count <15 4. h/o CHF: BNP Continue beta nelsy from home regimen 5. Suspected cirrhosis: US abdomen limited to look for signs of cirrhosis--->finding consistent with presence of cirrhosis, also cholelithiasis 6. Acute on chronic kidney injury: Avoid nephrotoxic agents Blood transfusion as sort of fluid replacement Repeat CMP in the morning to trend kidney functions GI ppx: Protonix PO BID DVT ppx: SCDs Code status: Full Prognosis: guarded Disposition: inpatient PCU Time Spent With Patient Time: Total time spent is greater than 50% in coordination of care (as documented) at patient's floor/unit and/or counseling patient: Total time spent with greater than 50% in coordination of care (as documented) at patient's floor/unit and/or counseling patient:: 25 - 35 minutes QUALITY VTE Deep Vein Thrombosis/Pulmonary Embolism Present on Admission: No
[2021-04-05] MEDS: cefTRIAXone 1 GM VIAL IV SCH (09:07)
[2021-04-05] MEDS: LIDOCAINE PATCH TOPICAL SCH (09:07)
--- NOTE | 2021-04-05 10:43 | Discharge Summary ---
Discharge Provider Provider Patient information: Note initiated : 04/05/21 at 10:41 am Service Date, if different from initiated Date: [] Patient: Jose A Zamudio 81 y/o M admitted on 04/02/21 for Rectal Bleeding . Chief Complaint: [Upper GI bleeding] Date of admission: 04/02/21 13:33 Discharge date: 04/05/21 Primary care physician: Unknown Unknown Consults: 04/02/21 Consult to Physician [CONS] Stat Comment: Consulting Provider: Aneesh Messer Reason For Exam: Physician to Consult Consult to Physician [CONS] Stat Comment: Consulting Provider: Romeo Paz Reason For Exam: Physician to Consult Discharge Meds Discharge Medications Home Medications Better Bladder Ultra Blend Bladder Support Formula 2 cap PO DAILY 05/29/17 [History Confirmed 04/02/21 Last Taken 04/01/21 18:30] atenolol 25 mg PO DAILY 05/29/17 [History Confirmed 04/02/21 Last Taken 04/01/21 06:00] multivitamin with iron [Daily Multiple Vitamins/Iron] 1 tab PO DAILY 05/29/17 [History Confirmed 04/02/21 Last Taken 04/01/21 07:00] diclofenac sodium 1 % topical gel 2 g TOPICAL QID PRN 02/12/21 [History Confirmed 04/02/21 Last Taken 04/01/21 07:00] lidocaine 4 % topical patch 1 patch TOPICAL QDAY PRN 02/12/21 [History Confirmed 04/02/21 Last Taken 04/01/21 07:00] methocarbamol 750 mg tablet 750 mg PO TID PRN 02/12/21 [History Confirmed 04/02/21 Last Taken Unknown] pantoprazole 40 mg PO BIDAC #60 tab 04/05/21 [Rx Last Taken Unknown] tamsulosin 0.4 mg PO DAILY #30 cap 04/05/21 [Rx Last Taken Unknown] COURSE Hospital Course Hospital course: Patient was admitted on April 02, 2021 for upper GI bleeding. General surgeon Dr. Paz was consulted who performed EGD and found duodenal ulcer with bleeding. He cauterized it with epinephrine injections. Patient was started on full liquid diet. Patient was also found to have symptomatic anemia and a total of 4 units of PRBC transfusions were given and patient's hemoglobin and hematocrit, stabilized between 7 and 8 after transfusions. By April 05, 2021, patient's which clinical stability and no more episodes of black stool or bloody stool or hematemesis were observed. Decision was made to discharge patient home on that date with continuations of 40 Cook diet until changed by Dr. Paz. 2 weeks follow-up with Dr. Paz made for the patient. All questions were answered prior to patient being physically discharged. Discharge diagnosis: Duodenal ulcer bleed Time Spent with Patient Time attestation: Total time spent providing and/or coordinating discharge services: Patient was admitted on April 02, 2021 for upper GI bleeding. General surgeon Dr. Paz was consulted who performed EGD and found duodenal ulcer with bleeding. He cauterized it with epinephrine injections. Patient was started on full liquid diet. Patient was also found to have symptomatic anemia and a total of 4 units of PRBC transfusions were given and patient's hemoglobin and hematocrit, stabilized between 7 and 8 after transfusions. By April 05, 2021, patient's which clinical stability and no more episodes of black stool or bloody stool or hematemesis were observed. Decision was made to discharge patient home on that date with continuations of 40 Cook diet until changed by Dr. Paz. 2 weeks follow-up with Dr. Paz made for the patient. All questions were answered prior to patient being physically discharged. EXAM Constitutional Vitals: Temp Pulse Resp BP Pulse Ox 36.9 C 66 19 127/37 98 04/05/21 07:50 04/05/21 10:01 04/05/21 08:01 04/05/21 10:01 04/05/21 10:01 General appearance: cooperative and no acute distress Head Head exam: Present atraumatic and normocephalic Eye Eye exam: Present EOMI and PERRL ENT ENT exam: Present mucous membranes moist, normal exam and normal external ear exam Neck Neck exam: Present normal inspection; Absent lymphadenopathy, tenderness and thyromegaly Respiratory Respiratory exam: Absent accessory muscle use, respiratory distress and wheezes Cardiovascular Cardiovascular exam: Present normal rate and rhythm; Absent JVD GI/Abdominal GI/Abdominal exam: Present normal bowel sounds and soft; Absent organomegaly and tenderness Rectal Rectal exam: Present deferred Extremities Exam Extremities exam: Present full ROM, normal capillary refill and normal inspection; Absent tenderness Neurological Exam Neurological exam: Present alert, CN II-XII intact and oriented X3; Absent motor sensory deficit Psychiatric Psychiatric exam: Present normal affect and normal mood; Absent anxious and depressed Skin Skin exam: Present dry and intact Discharge Data Data Completed and Pending Labs on day of discharge: Labs from last 24 hours 04/05/21 04/05/21 04/03/21 05:40 05:40 05:08 WBC 6.2 RBC 2.14 L Hgb 7.4 L 6.8 L* Hct 23.7 L 20.4 L* MCV 110.7 H MCH 34.6 H MCHC 31.2 RDW 24.3 H Plt Count 79 L MPV 11.8 H Neut % (Auto) 47.3 Lymph % (Auto) 28.1 [place] % (Auto) 15.9 H Eos % (Auto) 7.6 H Baso % (Auto) 1.1 Lymph # (Auto) 1.73 [place] # (Auto) 0.98 H Eos # (Auto) 0.47 Baso # (Auto) 0.07 Absolute Neutrophils 2.90 Sodium 140 Potassium 4.2 Chloride 106 Carbon Dioxide 22 Anion Gap 12.0 BUN 57 H Creatinine 2.5 H GFR Calculation 24 Glucose 123 H Calcium 9.0 Total Bilirubin 1.9 H AST 88 H ALT 29 Alkaline Phosphatase 93 Total Protein 6.2 Albumin 3.2 Globulin 3.0 Albumin/Globulin Ratio 1.1 Discharge Plan Patient/Caregiver Discharge Instructions Activity: increase activity as tolerated Diet: Full Liquid Prescriptions: New tamsulosin 0.4 mg Capsule 0.4 mg PO DAILY Qty: 30 RF: 0 pantoprazole 40 mg Tablet,Delayed Release (Dr/Ec) 40 mg PO BIDAC Qty: 60 RF: 0 Continued methocarbamol 750 mg tablet 750 mg PO TID PRN (Reason: Pain) RF: 0 diclofenac sodium [Voltaren Arthritis Pain] 1 % gel 2 g topical QID PRN (Reason: Pain (Scale Score 1-3)) RF: 0 lidocaine [Salonpas (lidocaine)] 4 % adhesive patch,medicated 1 patch topical QDAY PRN (Reason: Pain) RF: 0 atenolol 25 MG tablet 25 mg PO DAILY RF: 0 multivitamin with iron [Daily Multiple Vitamins/Iron] 1 EACH tablet 1 tab PO DAILY RF: 0 Better Bladder Ultra Blend Bladder Support Formula 50 MCG capsule 2 cap PO DAILY RF: 0 Follow Up Plan Follow up with: Unknown,Unknown [Primary Care Provider] - Patient Disposition: Home, Self-Care Prognosis: Fair Rehab Potential: Good I certify that the patient requires SNF services: No Overall status at discharge: patient is back to baseline Discharge Orders: Discharge Order (Routine); Ordered 04/05/21 Ordered By: Aneesh ASTUDILLO VTE Deep Vein Thrombosis/Pulmonary Embolism Present on Admission: No
== END 2021-04-05 14:49 | disposition home or self-care (01) | DRG 378 ==
LOC: ED 07:20 → ICU 13:33
PROVIDERS: ADMIT Internal Medicine; ATTEND Internal Medicine